=== PATIENT | female | born 2000 | race Caucasian/White ===

== ENCOUNTER 2024-07-20 21:14 | Emergency (ER) | payer BC, SELFPAY ==
[2024-07-20 21:20] VITALS: BP 106/90; PULSE 76; RESP 18; TEMP 36.4; O2SAT 100
[2024-07-20 22:56] LABS: Basophils Percent Auto 0.2 % (0.2-1.2); Eosinophils Percent Auto 0.8 % (0-4.4); Hematocrit 40.6 % (37.0-47.0); Hemoglobin 13.9 g/dL (12.0-15.0); Immature Granulocyte Absolute 0.01 K/mm3 (0.00-0.031); Immature Granulocyte Percent A 0.2 % (0-0.5); Lymphocytes Absolute Auto 1.76 K/mm3 (0.9-3.2); Lymphocytes Percent Auto 36.1 % (18.3-44.2); Mean Corpuscular HGB Conc 34.2 g/dl (32-36); Mean Corpuscular Volume 87.7 fl (80-100); Mean Platelet Volume 9.2 fl (7.4-10.4); Monocytes Absolute Auto 0.3 K/mm3 (0.1-0.6); Monocytes Percent Auto 6.6 % (2.6-8.5); Neutrophils Absolute Auto 2.7 K/mm3 (1.3-6.7); Neutrophils Percent Auto 56.1 % (45.5-73.1); Platelet Count Result 413 k/mm3 (150-375); Red Blood Count 4.63 M/mm3 (4.2-5.4); Red Cell Distribution Width 12.6 % (11.5-14.5); White Blood Count 4.9 K/mm3 (4.5-10.0)
[2024-07-20 23:02] LABS: Add Urine Microscopic? YES; Appearance Urine Cloudy (Clear); Bacteria Urine 1+ /hpf; Bilirubin Urine Negative (Negative); Blood Urine Negative (Negative); Color Urine Yellow (Yellow); Glucose Urine UA Negative (Negative); Ketones Urine Negative (Negative); Leukocyte Esterase Ur 1+ LEU/UL (Negative); Nitrate Urine Negative (Negative); Non Pathogenic Casts 0-2; Protein Urine Negative (Negative); RBC Urine 0-2 /hpf (0-2); Specific Grav Ur 1.005 (1.001-1.035); Squamous Epithelial Cell Urine Many /hpf (Few); Urobilinogen Urine 0.2 mg/dL (<2.0); pH Urine 7.5 (5.0-9.0)
[2024-07-20 23:06] LABS: Alanine Aminotransferase 39 U/L (6-35); Albumin Level 4.3 g/dL (3.5-5.1); Alkaline Phosphatase 102 U/L (38-126); Anion Gap 16 mmol/L (4-12); Aspartate Amino Transferase 49 U/L (14-36); Bilirubin,Total 0.8 mg/dL (0.2-1.3); Blood Urea Nitrogen 5 mg/dL (7-17); Calcium 8.8 mg/dL (8.4-10.2); Carbon Dioxide 23 mmol/L (22-30); Chloride 105 mmol/L (98-107); Estimated CRCL calculation 123 ml/min; Estimated Glomerular Filt Rate > 60; Glucose 110 mg/dL (65-110); Potassium 3.9 mmol/L (3.4-5.0); Sodium 144 mmol/L (137-145)
[2024-07-20 23:07] LABS: Acetaminophen < 10 ug/mL (10-30); Ethanol 270 mg/dL (<10); Salicylate < 1.0 mg/dL (2-20)
[2024-07-20 23:18] LABS: Amphetamine Screen Urine Negative (Negative); Barbiturate Screen Urine Negative (Negative); Benzodiazepines Screen Urine Negative (Negative); Cannabinoid Screen Urine Positive (Negative); Cocaine Screen Urine Negative (Negative); Methadone Screen Urine Negative (Negative); Opiate Screen Urine Negative (Negative); Phencyclidine Screen Urine Negative (Negative)
--- NOTE | 2024-07-21 00:06 | PC.NURSE ---
Per MD Hermosillo, pt is low-risk with no plan and no history of suicide attempt. Pt reports she just drinks when she feels like this . Per MD Hermosillo, okay to d/c sitter at this time. Pt currently resting, even/unlabored respirations. Waiting sobriety. Pt and pt's mother aware of plan.
--- NOTE | 2024-07-21 00:30 | ED_ITS ---
HPI - General Adult General Chief complaint: Psychiatric Symptoms <Tomas Hermosillo MD - Last Filed: 07/21/24 00:33> Stated complaint: SI FROM [facility] <Tomas Hermosillo MD - Last Filed: 07/21/24 00:33> Time Seen by Provider: 07/20/24 21:15 <Tomas Hermosillo MD - Last Filed: 07/21/24 00:33> History of Present Illness HPI narrative: This is a 24-year-old female with history of alcohol abuse presenting for alcohol intoxication and suicidal ideation. She got drunk at a gas station was found sleeping in her car. Please restaurant gave her DUI. While she was at the police station she started crying and said she wanted to kill herself. They then brought her to the hospital for evaluation. Patient is denying SI to me. She says she was upset because she got a DUI. No history of psychiatric illness or suicide attempts or hospitalization for psychiatric illness. She does has a history of alcohol abuse with withdrawal symptoms. <Tomas Hermosillo MD - Last Filed: 07/21/24 00:33> Related Data Allergies/adverse reactions: Allergies Allergy/AdvReac Type Severity Reaction Status Date / Time No Known Allergies Allergy Verified 07/21/24 08:43 <Tomas Hermosillo MD - Last Filed: 07/21/24 00:33> FOR[facility]LY [facility] Family History Family History: Family History (Updated 02/08/14 @ 07:13 by DOCTOR UNKNOWN) Grandparent Family history of obesity Hypertension Family history of cardiac disorder Diabetes mellitus Sibling Family history of eczema <Tomas Hermosillo MD - Last Filed: 07/21/24 00:33> Social History Social History: Social History Second hand tobacco smoke exposure: No Alcohol intake: never <Tomas Hermosillo MD - Last Filed: 07/21/24 00:33> Exam 2 Narrative: APPEARANCE: No apparent distress. Head: atraumatic. EYES: EOMI, NOSE: Atraumatic NECK: Trachea midline RESPIRATORY: No increased rate of breathing CTAB CARDIOVASCULAR: RRR, no peripheral edema ABDOMINAL: Non-distended soft nontender MUSCULOSKELETAl: No obvious deformities NEURO: Alert. Moving 4/4 extremities SKIN:: Warm, dry. Normal color PSYCHIATRIC: Normal affect <Tomas Hermosillo MD - Last Filed: 07/21/24 00:33> Course Reevaluation(s) Reevaluation #1: On re-evaluation patient's blood alcohol was below the legal limit. Patient denies any current suicidal ideation. Patient was offered crisis evaluation and patient declined. Patient states he does have a therapist that she will follow up with. All questions concerns and patient was comfortable plan for discharge and follow-up. Patient was encouraged to return to the emergency department if she did not feel safe. <Boyd Parker MD - Last Filed: 07/21/24 18:34> Vital Signs Vital signs: Vital Signs Temperature 97.6 F 07/20/24 21:20 Pulse Rate 76 07/20/24 21:20 Respiratory Rate 18 07/20/24 21:20 Blood Pressure 106/90 07/20/24 21:20 Pulse Oximetry 100 07/20/24 21:20 Oxygen Delivery Room Air 07/20/24 21:20 Temperature 97.3 F L 07/21/24 08:28 Pulse Rate 77 07/21/24 08:28 Respiratory Rate 20 07/21/24 08:28 Blood Pressure 124/77 07/21/24 08:28 Pulse Oximetry 100 07/21/24 08:28 Oxygen Delivery Room Air 07/20/24 21:20 <Tomas Hermosillo MD - Last Filed: 07/21/24 00:33> Vital Signs Temperature 97.6 F 07/20/24 21:20 Pulse Rate 76 07/20/24 21:20 Respiratory Rate 18 07/20/24 21:20 Blood Pressure 106/90 07/20/24 21:20 Pulse Oximetry 100 07/20/24 21:20 Oxygen Delivery Room Air 07/20/24 21:20 Temperature 97.3 F L 07/21/24 08:28 Pulse Rate 77 07/21/24 08:28 Respiratory Rate 20 07/21/24 08:28 Blood Pressure 124/77 07/21/24 08:28 Pulse Oximetry 100 07/21/24 08:28 Oxygen Delivery Room Air 07/20/24 21:20 <Boyd Parker MD - Last Filed: 07/21/24 18:34> Medical Decision Making MDM Narrative Medical decision making narrative: -Course: 24-year-old female presenting after making suicidal comments to the police after being arrested. She was monitored till sober. She is not suicidal. Patient be discharged <Tomas Hermosillo MD - Last Filed: 07/21/24 00:33> Vital Signs Vital Signs: Vital Signs Temperature 97.6 F 07/20/24 21:20 Pulse Rate 76 07/20/24 21:20 Respiratory Rate 18 07/20/24 21:20 Blood Pressure 106/90 07/20/24 21:20 Pulse Oximetry 100 07/20/24 21:20 Oxygen Delivery Room Air 07/20/24 21:20 Temperature 97.3 F L 07/21/24 08:28 Pulse Rate 77 07/21/24 08:28 Respiratory Rate 20 07/21/24 08:28 Blood Pressure 124/77 07/21/24 08:28 Pulse Oximetry 100 07/21/24 08:28 Oxygen Delivery Room Air 07/20/24 21:20 <Tomas Hermosillo MD - Last Filed: 07/21/24 00:33> Vital Signs Temperature 97.6 F 07/20/24 21:20 Pulse Rate 76 07/20/24 21:20 Respiratory Rate 18 07/20/24 21:20 Blood Pressure 106/90 07/20/24 21:20 Pulse Oximetry 100 07/20/24 21:20 Oxygen Delivery Room Air 07/20/24 21:20 Temperature 97.3 F L 07/21/24 08:28 Pulse Rate 77 07/21/24 08:28 Respiratory Rate 20 07/21/24 08:28 Blood Pressure 124/77 07/21/24 08:28 Pulse Oximetry 100 07/21/24 08:28 Oxygen Delivery Room Air 07/20/24 21:20 <Boyd Parker MD - Last Filed: 07/21/24 18:34> Lab Data Result diagrams: 07/20/24 22:23 07/20/24 22:23 <Tomas Hermosillo MD - Last Filed: 07/21/24 00:33> Labs: Lab Results 07/20/24 07/21/24 07/21/24 Range/Units 22:23 06:53 08:22 WBC 4.9 (4.5-10.0) K/mm3 RBC 4.63 (4.2-5.4) M/mm3 Hgb 13.9 (12.0-15.0) g/dL Hct 40.6 (37.0-47.0) % MCV 87.7 (80-100) fl MCH 30.0 (26-34) pg MCHC 34.2 (32-36) g/dl RDW 12.6 (11.5-14.5) % Plt Count 413 H (150-375) k/mm3 MPV 9.2 (7.4-10.4) fl Immature Gran % (Auto) 0.2 (0-0.5) % Neut % (Auto) 56.1 (45.5-73.1) % Lymph % (Auto) 36.1 (18.3-44.2) % [place] % (Auto) 6.6 (2.6-8.5) % Eos % (Auto) 0.8 (0-4.4) % Baso % (Auto) 0.2 (0.2-1.2) % Lymph # (Auto) 1.76 (0.9-3.2) K/mm3 [place] # (Auto) 0.3 (0.1-0.6) K/mm3 Eos # (Auto) 0.0 (0-0.3) K/mm3 Baso # (Auto) 0.0 (0.0-0.1) K/mm3 Abs Immat Gran (auto) 0.01 (0.00-0.031) K/mm3 Absolute Neuts (auto) 2.7 (1.3-6.7) K/mm3 Absolute Nucleated RBC 0.000 (0.0-0.012) K/mm3 Nucleated RBC % 0.0 (0.0-0.2) % Sodium 144 (137-145) mmol/L Potassium 3.9 (3.4-5.0) mmol/L Chloride 105 (98-107) mmol/L Carbon Dioxide 23 (22-30) mmol/L Anion Gap 16 H (4-12) mmol/L BUN 5 L (7-17) mg/dL Creatinine 0.53 L (0.7-1.0) mg/dL Estim Creat Clear Calc 123 ml/min Estimated GFR > 60 (59 - ) Glucose 110 (65-110) mg/dL Calcium 8.8 (8.4-10.2) mg/dL Total Bilirubin 0.8 (0.2-1.3) mg/dL AST 49 H (14-36) U/L ALT 39 H (6-35) U/L Alkaline Phosphatase 102 (38-126) U/L Total Protein 7.0 (6.3-8.2) g/dL Albumin 4.3 (3.5-5.1) g/dL TSH 2.660 (0.465-4.680) uIU/mL Urine Color Yellow (Yellow) Urine Appearance Cloudy H (Clear) Urine pH 7.5 (5.0-9.0) Ur Specific [place] 1.005 (1.001-1.035) Urine Protein Negative (Negative) mg/dL Urine Glucose (UA) Negative (Negative) mg/dL Urine Ketones Negative (Negative) mg/dL Ur Blood (Man) Negative (Negative) Urine Nitrate Negative (Negative) Urine Bilirubin Negative (Negative) Urine Urobilinogen 0.2 (<2.0) mg/dL Leukocyte Esterase Rfl 1+ H (Negative) JIM/UL Urine RBC 0-2 (0-2) /hpf Urine WBC 11-20 H (0-3) /hpf Ur Squamous Epith Cells Many H (Few) /hpf Urine Bacteria 1+ H /hpf Urine Casts 0-2 Salicylates < 1.0 L (2-20) mg/dL Urine Opiates Screen Negative (Negative) Urine Methadone Screen Negative (Negative) Acetaminophen < 10 L (10-30) ug/mL Ur Barbiturates Screen Negative (Negative) Ur Phencyclidine Scrn Negative (Negative) Ur Amphetamine Screen Negative (Negative) U Benzodiazepines Scrn Negative (Negative) Urine Cocaine Screen Negative (Negative) U Cannabinoids Screen Positive A (Negative) Ethyl Alcohol 270 111 78 (<10) mg/dL <Tomas Hermosillo MD - Last Filed: 07/21/24 00:33> Lab Results 07/20/24 07/21/24 07/21/24 Range/Units 22:23 06:53 08:22 WBC 4.9 (4.5-10.0) K/mm3 RBC 4.63 (4.2-5.4) M/mm3 Hgb 13.9 (12.0-15.0) g/dL Hct 40.6 (37.0-47.0) % MCV 87.7 (80-100) fl MCH 30.0 (26-34) pg MCHC 34.2 (32-36) g/dl RDW 12.6 (11.5-14.5) % Plt Count 413 H (150-375) k/mm3 MPV 9.2 (7.4-10.4) fl Immature Gran % (Auto) 0.2 (0-0.5) % Neut % (Auto) 56.1 (45.5-73.1) % Lymph % (Auto) 36.1 (18.3-44.2) % [place] % (Auto) 6.6 (2.6-8.5) % Eos % (Auto) 0.8 (0-4.4) % Baso % (Auto) 0.2 (0.2-1.2) % Lymph # (Auto) 1.76 (0.9-3.2) K/mm3 [place] # (Auto) 0.3 (0.1-0.6) K/mm3 Eos # (Auto) 0.0 (0-0.3) K/mm3 Baso # (Auto) 0.0 (0.0-0.1) K/mm3 Abs Immat Gran (auto) 0.01 (0.00-0.031) K/mm3 Absolute Neuts (auto) 2.7 (1.3-6.7) K/mm3 Absolute Nucleated RBC 0.000 (0.0-0.012) K/mm3 Nucleated RBC % 0.0 (0.0-0.2) % Sodium 144 (137-145) mmol/L Potassium 3.9 (3.4-5.0) mmol/L Chloride 105 (98-107) mmol/L Carbon Dioxide 23 (22-30) mmol/L Anion Gap 16 H (4-12) mmol/L BUN 5 L (7-17) mg/dL Creatinine 0.53 L (0.7-1.0) mg/dL Estim Creat Clear Calc 123 ml/min Estimated GFR > 60 (59 - ) Glucose 110 (65-110) mg/dL Calcium 8.8 (8.4-10.2) mg/dL Total Bilirubin 0.8 (0.2-1.3) mg/dL AST 49 H (14-36) U/L ALT 39 H (6-35) U/L Alkaline Phosphatase 102 (38-126) U/L Total Protein 7.0 (6.3-8.2) g/dL Albumin 4.3 (3.5-5.1) g/dL TSH 2.660 (0.465-4.680) uIU/mL Urine Color Yellow (Yellow) Urine Appearance Cloudy H (Clear) Urine pH 7.5 (5.0-9.0) Ur Specific [place] 1.005 (1.001-1.035) Urine Protein Negative (Negative) mg/dL Urine Glucose (UA) Negative (Negative) mg/dL Urine Ketones Negative (Negative) mg/dL Ur Blood (Man) Negative (Negative) Urine Nitrate Negative (Negative) Urine Bilirubin Negative (Negative) Urine Urobilinogen 0.2 (<2.0) mg/dL Leukocyte Esterase Rfl 1+ H (Negative) JIM/UL Urine RBC 0-2 (0-2) /hpf Urine WBC 11-20 H (0-3) /hpf Ur Squamous Epith Cells Many H (Few) /hpf Urine Bacteria 1+ H /hpf Urine Casts 0-2 Salicylates < 1.0 L (2-20) mg/dL Urine Opiates Screen Negative (Negative) Urine Methadone Screen Negative (Negative) Acetaminophen < 10 L (10-30) ug/mL Ur Barbiturates Screen Negative (Negative) Ur Phencyclidine Scrn Negative (Negative) Ur Amphetamine Screen Negative (Negative) U Benzodiazepines Scrn Negative (Negative) Urine Cocaine Screen Negative (Negative) U Cannabinoids Screen Positive A (Negative) Ethyl Alcohol 270 111 78 (<10) mg/dL <Boyd Parker MD - Last Filed: 07/21/24 18:34> Discharge Plan Discharge Clinical Impression: Alcohol intoxication <Tomas Hermosillo MD - Last Filed: 07/21/24 00:33> Patient Disposition: Home, Self-Care <Tomas Hermosillo MD - Last Filed: 07/21/24 00:33> Condition: Stable <Tomas Hermosillo MD - Last Filed: 07/21/24 00:33> Instructions: Antibiotic Form, Abuse of Alcohol (DC) <Tomas Hermosillo MD - Last Filed: 07/21/24 00:33> Additional Instructions: Please continue seeking help with your alcohol abuse. Return to the ED if you develop thoughts of harming herself or someone else. You were offered evaluation by the crisis counselor but you preferred to have follow-up with your own therapist. If you have any worsening symptoms or if you do not feel safe then please feel welcome to call or return to the emergency department at any time. <Tomas Hermosillo MD - Last Filed: 07/21/24 00:33> Patient Language: Bangladeshi <Tomas Hermosillo MD - Last Filed: 07/21/24 00:33> Follow-up/Referrals: UNKNOWN,DOCTOR [Primary Care Provider] - <Tomas Hermosillo MD - Last Filed: 07/21/24 00:33>
[2024-07-21 07:11] LABS: Ethanol 111 mg/dL (<10)
[2024-07-21] MEDS: ONDANSETRON HCL ODT 4 MG TABLET PO (08:00)
[2024-07-21 08:28] VITALS: BP 124/77; PULSE 77; RESP 20; TEMP 36.3; O2SAT 100
[2024-07-21 08:42] LABS: Ethanol 78 mg/dL (<10)
== END 2024-07-21 09:40 | disposition home or self-care (01) ==
PROVIDERS: Emergency Provider Emergency Medicine
DX: F10.129 Alcohol abuse with intoxication, unspecified (principal); Y90.8 Blood alcohol level of 240 mg/100 ml or more
CPT/HCPCS: 36415; 80053; 80143; 80179; 80307; 81001; 82077; 84443; 85025; 99284; A9270

== ENCOUNTER 2025-06-13 08:43 | Emergency (ER) | payer BC, SELFPAY ==
--- OUTSIDE RECORDS SUMMARY | 2024-12-05 11:00 | XMS_ITS ---
Author Organization [facility] Address [address] [place] [address] Phone [phone] Care Team Providers Care Outsole Scheduler Name Role Phone Janet Meyers Primary Care Provider REASON FOR VISIT 4 week F/U Social History Sex Observation Social History Observation Description Sex Observation Female Sexual Orientation Social History Observation Description Sexual Orientation Straight or heterose xual Gender Identity Social History Observation Description Gender Identity Female Encounters Date Time Type Facility Location Provider Diagnosis 12/05/2024 11:00 AM Office Visit [facility] [address] [place] [address] Janet Meyers Plan Of Treatment No Information Medical (General) History Medical History History ICD Code Bipolar tendencies Depression Alcohlism Surgical History Surgery Date(Month/Year) Ear tubes 2002 [place] teeth extractions 2019 Hospitalization History Reason Date(Month/Year) [facility] 04/07 [place] [facility] 11/2024 Alcohol withdraw, UTI 11/2024 suicidal ideation/DUI 07/20/2024 Progress Notes * Daniel KIRKLANDOB:2000 ( 25 yo F)Acc No.[id number]:12/05/2024 UNLOCKED PROGRESS NOTE Patient: Mouna HERNANDEZ Provider: Radha Meyers, DNP, SENIOR COST ESTIMATOR, ELECTRONEURODIAGNOSTIC TECHNOLOGIST-C :2000 A ge:24 Y S ex:Female Date:12/05/2024 Address:[address], [id number] Subjective: * Chief Complaints: * 1 . 4 week F/U. * HPI: M edication F/u LS: Denies : Hallucinations:. D enies : Suicidal Ideation:.?Denies : Homicidal Ideation:. D enies : Paranoia:. D enies : AIMS. 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 C oping Skills: C oping Skills S elf-Care, Physical Activity/Sports/Exercise, Spirituality. M edication effectiveness, adherence, side effects: H ave medications been effective??Other (see comments): somewhat less depressed and anxious, M edication adherence? C lient reports taking some medications as prescribed., M edication side effects? D enies side effects. S leep: S leep: S leeps well when taking prescribed medications., A verage hours of sleep per night: 5 -6 decreased nightmares. A ppetite: A ppetite: D enies appetite issues. eating better, drinking water. A ttention/Focus: A ttention/focus: A ble to focus.. M ood swings: M ood swings: A dmits mood swings. feels faith, occasional racing thoughts. D epression rating: D epression rating, 0-10 scale (0=not at all; 10=worst): 4 comes and goes. A nxiety: A nxiety rating, 0-10 scale (0=not at all; 10=worst): 5 comes and goes. A nger/Irritability: A nger/Irritability: A dmits. irritable at times, comes and goes. M edical Concerns/Hospitalizations: M edical Concerns? D enies medical concerns., H ospitalizations: A dmits psychiatric hospitalization since last visit.. E ngagement in therapy: A ctively engaged in therapy? D oes not attend therapy., Notes: will be finding a therapist. Presents in clinic. Discharged from [facility] Wednesday. Reports feeling better. Occasional cravings, not as bad as before admission to [facility]. Has thoughts of using then remembers she has difficulty stopping with one drink. * ROS: P sych ROS: Constitutional A ll systems negative unless indicated otherwise.. C ardiovascular D enies, d izziness, syncope, palpitations.. H ematological/Lymphatic D enies, b leeding, excessive bruising. * PSYCH ROS2: Depressive symptoms R eports depressed mood, , , Denies anhedonia, Denies amotivation, Denies sleep problems. A dmits E levated mood symptoms, r acing thoughts, irritable. A dmits m ood swings, f eels samy. T houghts of self harm D enies. D enies H omicidal thoughts. H yperactivity D enies. I nattention D enies. B ehavior concerns D enies. D isruptive behavior D enies. O bsessive behavior D enies.?Paranoia D enies. D ifficulty concentrating D enies. s leeping more than usual Denies. A dmits A nxiety, t hat is mild to moderate. D enies A uditory/visual hallucinations. D enies D elusions. A dmits D epressed mood, w hich is moderate. D enies D ifficulty sleeping. D enies E ating disorder. D enies L oss of appetite. D enies M ental or Physical abuse. A dmits S tressors, r elationship,health. D enies S ubstance abuse. D enies S uicidal thoughts. * Screening: * * Medical History: Objective: * Vitals: * Examination: P sychiatry: APPEARANCE: w ell-groomed, well-nourished, appropriately dressed/groomed, casually dressed. ATTENTION: f air. ORIENTATION: y es , person, place and time. ATTITUDE: c ooperative ,, . AFFECT: b lunted, . MOOD: d ysthymic, uneasy. SPEECH: c lear , normal/R/V/R, spontaneous, . PSYCHOMOTOR ACTIVITY: w ithin normal range, . ABNORMAL BODY MOVEMENTS: n one. CURRENT HOMICIDALITY: n one. CURRENT SUICIDALITY: n ot presently, Occasional thoughts, no intent or plan--increased when drinking. THOUGHT PROCESS: i ntact, linear, goal-directed. THOUGHT CONTENT: u nremarkable, racing thoughts. PERCEPTUAL DISORDERS: n o perceptual disorder noted--reports AH/VH. INSIGHT: f air. JUDGEMENT: f air. DEGREE OF AWARENESS OF SURROUNDINGS: w ithin normal limits.? INTELLIGENCE (estimate): a verage. ABSTRACTION: g ood. IMPULSE CONTROL: f air to poor. ANXIETY LEVEL m oderate. ANGER CONTROL: m oderate. AGGRESSION: l ow. 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 Discharged from [facility] Wednesday. Reports feeling better. Occasional cravings, not as bad as before admission to [facility]. Has thoughts of using then remembers she has difficulty stopping with one drink. Coping Skills: Coping Ski lls: Self-Care, Physical Activity/Sports/Exercise, Spirituality Medication effectiveness, adherence, side effects: Have medications been effect lalita?: Other (see comments): somewhat less depressed and anxious Medication adherence?: Client reports ta brett some medications as prescribed. Medication side effects?: Denies side ef fects Sleep: Sleep:: Sleeps well when taking prescribed medications. Average hours of sleep per night:: 5-6 d ecreased nightmares Appetite: Appetite:: Den ies appetite issues. eating better, drinking water Attention/Focus: Attentio n/focus:: Able to focus. Mood swings: Mood swings: : Admits mood swings. feels faith, occasional racing thoughts Depression rating: Depres danny rating, 0-10 scale (0=not at all; 10=worst):: 4 comes and goes Anxiety: Anxiety rating , 0-10 scale (0=not at all; 10=worst):: 5 comes and goes Anger/Irritability: Anger /Irritability:: Admits. irritable at times, comes and goes Medical Concerns/Hospitalizations: Medical Concerns?: Denies medical concerns. Hospitalizations:: Admits psychiatric ho spitalization since last visit. Engagement in therapy: [place]ral engaged in therapy?: Does not attend therapy., Notes: will be finding a therapist Examination Category Field Details Notes Category Notes Psychiatry APPEARANCE: well-groomed, we ll-nourished, appropriately dressed/groomed, casually dressed ATTITUDE: cooperative ,, PSYCHOMOTOR ACTIVITY: within normal rang e, ABNORMAL BODY MOVEMENTS: none ATTENTION: fair DEGREE OF AWARENESS OF SURROUNDINGS: wit hin normal limits ORIENTATION: yes , person, place and time AFFECT: blunted, MOOD: dysthymic, uneasy SPEECH: clear , normal/R/V/R , spontaneous, INSIGHT: fair JUDGEMENT: fair THOUGHT PROCESS: intact, linear, goal -directed THOUGHT CONTENT: unremarkable, racing thoughts PERCEPTUAL DISORDERS: no perceptual diso rder noted--reports AH/VH ABSTRACTION: good AGGRESSION: low ANGER CONTROL: moderate CURRENT SUICIDALITY: not presently, Occa sional thoughts, no intent or plan--increased when drinking CURRENT HOMICIDALITY: none INTELLIGENCE (estimate): average IMPULSE CONTROL: fair to poor ANXIETY LEVEL moderate
--- OUTSIDE RECORDS SUMMARY | 2024-12-28 16:00 | XMS_ITS ---
Author Organization [facility] Address [address] [place] [address] Phone [phone] Care Team Providers Care Hotel Assistant General Manager Name Role Phone Janet Meyers Primary Care Provider [phone] REASON FOR VISIT r/s from 12/05 Social History Sex Observation Social History Observation Description Sex Observation Female Sexual Orientation Social History Observation Description Sexual Orientation Straight or heterose xual Gender Identity Social History Observation Description Gender Identity Female Encounters Date Time Type Facility Location Provider Diagnosis 12/28/2024 04:00 PM Office Visit [facility] [address] [place] [address] Janet Meyers Plan Of Treatment No Information Medical (General) History Medical History History ICD Code Bipolar tendencies Depression Alcohlism Surgical History Surgery Date(Month/Year) Ear tubes 2002 [place] teeth extractions 2019 Hospitalization History Reason Date(Month/Year) [facility] 04/07 [place] [facility] 11/2024 Alcohol withdraw, UTI 11/2024 suicidal ideation/DUI 07/20/2024 Progress Notes * IGNACIO DanielOB:2000 ( 25 yo F)Acc No.[id number]:12/28/2024 UNLOCKED PROGRESS NOTE Patient: Mouna HERNANDEZ Provider: Radha Meyers, DNP, [employer] SOLUTION ARCHITECT, JEWELLERY DESIGNER-C :2000 A ge:24 Y S ex:Female Date:12/28/2024 Address:[address], [id number] Subjective: * Chief Complaints: * 1 . R/s from 12/05. * HPI: M edication F/u LS: Denies [...] Treatment: * * Electronic signature of Michael Meyers , [id number] on 06/13/2025 at 08:46 AM DIRECT MAIL CLERK Sign off status: Pending * Provider: Radha Meyers, [place], SFDC SOLUTION ARCHITECT, JEWELLERY DESIGNER-C Date: 0 12/28/2024 Generated for Printing/Faxing/eTransmitting on: 1 08:46 AM DIRECT MAIL CLERK History and Physical Notes * HPI (History [...] faith, occasional racing thoughts Depression rating: Depres adnny rating, 0-10 scale (0=not at all; 10=worst):: 4 comes and goes Anxiety: Anxiety rating , 0-10 scale (0=not at all; 10=worst):: 5 comes and goes Anger/Irritability: Anger /Irritability:: Admits. irritable at times, comes and goes Medical Concerns/Hospitalizations: Medical Concerns?: Denies medical concerns. Hospitalizations:: Admits psychiatric ho spitalization since last visit. Engagement in therapy: Ac margueritevely engaged in therapy?: Does not attend therapy., [...]
--- OUTSIDE RECORDS SUMMARY | 2025-01-17 10:20 | XMS_ITS ---
Author Organization [facility] Address [address] [place] [address] Phone [phone] Care Team Providers Care Guardian Ad Litem Name Role Phone Sparr Janet Primary Care Provider Fransico jOeda Unavailable [phone] Results Component Value Reference Range Notes HIV Screen *HIV 1, 2 Ab, p24 Ag ([id number]) Order date: 01/17/2025 Reviewed date:02/01/2025 01:12:15 PM Interpretation: Performing Lab: Notes/Report: Iron and TIBC* Order date: 01/17/2025 Reviewed date:02/01/2025 01:12:48 PM Interpretation: Performing Lab: Notes/Report: Lipase, Serum Order date: 01/17/2025 Reviewed date:02/01/2025 01:13:46 PM Interpretation: Performing Lab: Notes/Report: CBC With Differential/Platel et* Order date: 01/17/2025 Reviewed date:02/01/2025 01:12:55 PM Interpretation: Performing Lab: Notes/Report: Hepatitis B Surface Antigen (HBsAg Screen) Order date: 01/17/2025 Reviewed date:02/01/2025 01:12:07 PM Interpretation: Performing Lab: Notes/Report: Hepatitis B Surf Ab Quant* Order date: 01/17/2025 Reviewed date:02/01/2025 01:11:43 PM Interpretation: Performing Lab: Notes/Report: C-Reactive Protein, Quant Order date: 01/17/2025 Reviewed date:02/01/2025 01:12:42 PM Interpretation: Performing Lab: Notes/Report: Hepatitis C Virus Antibody w /Rflx to Quantitative Real-time PCR ([id number]) Order date: 01/17/2025 Reviewed date:02/01/2025 01:11:55 PM Interpretation: Performing Lab: Notes/Report: TSH Rfx on Abnormal to Free T4 Order date: 01/17/2025 Reviewed date:02/01/2025 01:12:26 PM Interpretation: Performing Lab: Notes/Report: UA/M w/rflx Culture, Routine Order date: 01/17/2025 Reviewed date:02/01/2025 01:11:15 PM Interpretation: Performing Lab: Notes/Report: REASON FOR VISIT lab Medications Medication SIG (Take, Route, Frequency, Duration) Notes Start Date End Date Diagnosis (ICD Code) Status cloNIDine HCl 0.1 MG Tablet 1 tablet Orally two times daily; Duration: 30 days As needed 08/14/2024 KATHERIN (generalized anxiety disorder) (ICD_10 - F41.1) Not-Taking QUEtiapine Fumarate 100 MG Tablet 1 tablet Orally twice a day; Duration: 30 days KATHERIN (generalized anxiety disorder) (ICD_10 - F41.1) Active traZODone HCl 100 MG Tablet 1 tablet at bedtime Orally Once a day Active cloNIDine HCl ER 0.1 MG Tablet Extended Release 12 Hour 1 tablet at bedtime Orally Once a day; Duration: 30 days KATHERIN (generalized anxiety disorder) (ICD_10 - F41.1) Active Naltrexone HCl 50 MG Tablet 1 tablet Orally Once a day; Duration: 30 days Alcohol use disorder (ICD_10 - F10.99) Active Thiamine Mononitrate 100 MG Tablet 1 tablet Orally Once a day; Duration: 3 days 10/09/2024 KATHERIN (generalized anxiety disorder) (ICD_10 - F41.1) Active Folic Acid 1 MG Tablet 1 tablet Orally Once a day; Duration: 30 day(s) 10/09/2024 KATHERIN (generalized anxiety disorder) (ICD_10 - F41.1) Active Multi Vitamin - Tablet 1 tablet Orally Once a day; Duration: 30 days 10/09/2024 KATHERIN (generalized anxiety disorder) (ICD_10 - F41.1) Active hydrOXYzine HCl 50 MG Tablet 1 tablet Orally every 6 hours; Duration: 30 days As needed KATHERIN (generalized anxiety disorder) (ICD_10 - F41.1) Active Escitalopram Oxalate 20 MG Tablet 1 tablet Orally Once a day; Duration: 30 days MDD (major depressive disorder), single episode, moderate (ICD_10 - F32.1) Active Social History Sex Observation Social History Observation Description Sex Observation Female Sexual Orientation Social History Observation Description Sexual Orientation Straight or heterose xual Gender Identity Social History Observation Description Gender Identity Female Encounters Date Time Type Facility Location Provider Diagnosis 10:20 AM Office Visit [address] [address] Fransico Ojeda Iron deficiency anemia D50.9 ; Abdominal pain R10.9 ; Fatty liver K76.0 ; Diarrhea R19.7 ; Fatigue R53.83 and Exposure to potential infection Z20.9 Assessments Encounter Date Diagnosis (ICD Code) Assessment Notes Treat ment Notes Section Notes 01/17/2025 Iron deficiency anem ia (ICD-10 - D50.9) 01/17/2025 Abdominal pain (ICD- 10 - R10.9) 01/17/2025 Fatty liver (ICD-10 - K76.0) 01/17/2025 Diarrhea (ICD-10 - R19.7) 01/17/2025 Fatigue (ICD-10 - R53.83) 01/17/2025 Exposure to potentia l infection (ICD-10 - Z20.9) Plan Of Treatment No Information Medical (General) History Medical History History ICD Code Bipolar tendencies Depression Alcohlism Surgical History Surgery Date(Month/Year) Ear tubes 2002 [place] teeth extractions 2019 Hospitalization History Reason Date(Month/Year) [facility] 04/07 [facility] 11/2024 Alcohol withdraw, UTI 11/2024 suicidal ideation/DUI 07/20/2024 Progress Notes * Daniel KIRKLANDOB:2000 ( 25 yo F)Acc No.[id number]:01/17/2025 UNLOCKED PROGRESS NOTE Patient: Mouna HERNANDEZ Provider: Riley Ojeda :2000 A ge:24 Y S ex:Female Date:01/17/2025 Address:[place], [id number] Pcp:Janet Meyers Subjective: * Chief Complaints: * 1 . Lab. * Screening: * * Medical History: * Medications: T aking traZODone HCl 100 MG Tablet 1 tablet at bedtime Orally Once a day , Taking Multi Vitamin - Tablet 1 tablet Orally Once a day , Taking Folic Acid 1 MG Tablet 1 tablet Orally Once a day , Taking Thiamine Mononitrate 100 MG Tablet 1 tablet Orally Once a day , Taking Escitalopram Oxalate 20 MG Tablet 1 tablet Orally Once a day , Taking hydrOXYzine HCl 50 MG Tablet 1 tablet Orally every 6 hours As needed, Taking Naltrexone HCl 50 MG Tablet 1 tablet Orally Once a day , Taking cloNIDine HCl ER 0.1 MG Tablet Extended Release 12 Hour 1 tablet at bedtime Orally Once a day , Taking QUEtiapine Fumarate 100 MG Tablet 1 tablet Orally twice a day , Not-Taking cloNIDine HCl 0.1 MG Tablet 1 tablet Orally two times daily As needed Objective: * Vitals: Assessment: * Assessment: 1. I karen deficiency anemia - D50.9 2 . A bdominal pain - R10.9 ?3. F atty liver - K76.0 4 . D iarrhea - R19.7 5 . F atigue - R53.83 6 . E xposure to potential infection - Z20.9 Plan: * Treatment: 2. A bdominal pain L AB: Lipase, Serum (Collection Date & Time - 01/17/2025) L AB: CBC With Differential/Platelet* (Collection Date & Time - 01/17/2025) L AB: UA/M w/rflx Culture, Routine (Collection Date & Time - 01/17/2025) 3. F atty liver L AB: Hepatitis B Surface Antigen (HBsAg Screen) (Collection Date & Time - 01/17/2025) L AB: Hepatitis B Surf Ab Quant* (Collection Date & Time - 01/17/2025) L AB: Hepatitis C Virus Antibody w/Rflx to Quantitative Real-time PCR ([id number]) (Collection Date & Time - 01/17/2025) 4. D iarrhea L AB: C-Reactive Protein, Quant (Collection Date & Time - 01/17/2025) 5. F atigue L AB: TSH Rfx on Abnormal to Free T4 (Collection Date & Time - 01/17/2025) 6. E xposure to potential infection L AB: HIV Screen *HIV 1, 2 Ab, p24 Ag ([id number]) (Collection Date & Time - 01/17/2025) * * Electronic signature of Homer Ojeda , [id number] on 06/13/2025 at 08:47 AM WHARF TALLY CLERK Sign off status: Pending * Provider: Riley Ojeda Date: 0 01/17/2025 Generated for Sarina dove/Venita/Lamar on: 1 08:47 AM WHARF TALLY CLERK
[2025-06-13 08:47] VITALS: BP 139/97; PULSE 92; RESP 16; TEMP 36.6; O2SAT 98
--- OUTSIDE RECORDS SUMMARY | 2025-06-13 08:47 | XMS_ITS | Clinical Summary ---
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 Role Phone SparrJanet NP Primary Care Provider [phone] Wes Segura MD Unavailable Allergies No known active allergies Medications hydrOXYzine (ATARAX) 50 mg tablet Take 1 tablet (50 mg total) by mouth every 4 (four) hours as needed for itching Active cloNIDine (CATAPRES) 0.1 mg tablet Take 1 tablet (0.1 mg total) by mouth 2 (two) times a day Active cholestyramine (QUESTRAN) 4 gram packet Take 1 packet by mouth 2 (two) times a day 60 packet 12/08/2024 Active loperamide (IMODIUM) 2 mg capsule Take 1 capsule (2 mg total) by mouth 3 (three) times a day 90 capsule 12/08/2024 Active traZODone (DESYREL) 50 mg tablet Take 1 tablet (50 mg total) by mouth nightly Active escitalopram (LEXAPRO) 20 mg tablet Take 1 tablet (20 mg total) by mouth daily 30 tablet 11 03/23/2025 Active gabapentin (NEURONTIN) 600 mg tablet Take 1 tablet (600 mg total) by mouth 3 (three) times a day 90 tablet 2 03/23/2025 Active QUEtiapine (SEROquel) 100 mg tablet Take 1 tablet (100 mg total) by mouth nightly 30 tablet 11 03/23/2025 Active lamoTRIgine (LaMICtal) 25 mg tablet Take 1 tablet (25 mg total) by mouth daily 30 tablet 11 03/24/[address] (PROTONIX) 40 mg EC tablet Take 1 tablet (40 mg total) by mouth daily 30 tablet 03/23/2025 Active Active Problems Problem Noted Date Diagnosed Date Nausea & vomiting 03/20/2025 Acute hypokalemia 03/19/2025 Diarrhea of presumed infectious origin Alcohol use 12/06/2024 Hepatic steatosis 12/06/2024 Colitis 12/03/2024 Vitreous hemorrhage 04/16/2015 Encounters Date Type Department Care Team Description 04/25/2025 [facility] Outreach [facility] [address] [place], [place] [phone] Chrissie Hdz 03/21/2025 Documentation [facility] [address] [place], [place] [phone] Chrissie Hdz 03/20/2025 Documentation [facility] [address] [place], [place] [phone] Paras Brown RRT 03/20/2025 Documentation [facility] [address] [place], [place] [phone] Jelly Baugh 03/19/2025 4:31 AM CDT - 03/23/2025 2:35 PM CDT Hospital Encounter [facility] [address] [place] [address] Maury Black MD Moore, Duane Harold, MD Sinha, Chandni, MD Sargsyan, Narine, MD Acute hypokalemia (Primary Dx); Leukocytosis, unspecified type; Toxic effect of 2-Propanol, unintentional, initial encounter Discharge Disposition: Discharge to home or self care 03/19/2025 [facility] Enrollment [facility] [address] [place], [place] [phone] Jelly Baugh from Last 3 Months Medical History Medical History Date Comments Bipolar 1 disorder (HCC) Anxiety Depression Suicidal ideation Social History Tobacco Use Types Packs/Day Years Used Date Smoking Tobacco: Every Day Cigarettes 0.3 0.2 Started: 03/18/2025 Smokeless Tobacco: Never Tobacco Cessation:Ready to Q uit: Not Asked; Counseling Given: Not Answered Alcohol Use Standard Drinks/Week Comments Yes 40 (1 standard drink = 0.6 oz pu re alcohol) Social Connection and Isolation Panel Answer Date Recorded In a typical week, how many times do you talk on the phone with family, friends, or neighbors? Three times a week 03/20/2025 How often do you get togethe r with friends or relatives? Three times a week 03/20/2025 How often do you attend chur or druze services? Never 03/20/2025 Do you belong to any clubs o r organizations such as baptism groups, unions, fraternal or athletic groups, or school groups? No 03/20/2025 How often do you attend meet ings of the clubs or organizations you belong to? Never 03/20/2025 Are you , , di vorced, , never , or living with a partner? 03/20/2025 AUDIT-C Answer Date Recorded Q1: How often do you have a drink containing alcohol? 4 or more times a week 03/19/2025 Q2: How many drinks containi ng alcohol do you have on a typical day when you are drinking? 10 or more Q3: How often do you have si x or more drinks on one occasion? Daily or almost daily 03/19/2025 Overall Financial Resource Strain (CARDIA) Answe r Date Recorded How hard is it for you to pa y for the very basics like food, housing, medical care, and heating? Very hard 03/20/2025 Hunger Vital Sign Answer Date Recorded Within the past 12 months, y ou worried that your food would run out before you got the money to buy more. Often true 03/20/20 25 Within the past 12 months, t he food you bought just didn't last and you didn't have money to get more. Often true 03/20/2025 PRAPARE - Transportation Answer Date Re corded In the past 12 months, has l ack of transportation kept you from medical appointments or from getting medications? No 12/2024 In the past 12 months, has l ack of transportation kept you from meetings, work, or from getting things needed for daily living? No 03/20/2025 Housing Stability Vital Sign Answer Sahde e Recorded In the last 12 months, was t here a time when you were not able to pay the mortgage or rent on time? Yes 03/20/2025 In the past 12 months, how m any times have you moved where you were living? 2 03/20/2025 At any time in the past 12 m [facility], were you homeless or living in a jail (including now)? Yes 03/20/2025 [facility] Utilities Answer Date Recorded In the past 12 months has th e [employer], gas, oil, or water company threatened to shut off services in your home? Yes 03/20/2025 Personal Safety Answer Date Recorded Have you ever been in or are you currently in a harmful physical or emotional relationship or is someone making you feel afraid or unsafe? 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 Gender Identity Not on file Sexual Orientation Not on file Last Filed Vital Signs Vital Sign Reading Time Taken Comments Blood Pressure 139/75 03/23/2025 10:43 AM CDT Pulse 76 03/23/2025 10:43 AM CDT Temperature 36.6 C (97.9 F) 03/23/2025 10:43 AM CDT Respiratory Rate 18 03/23/2025 10:4 3 AM CDT Oxygen Saturation 100% 03/23/2025 10: 43 AM CDT Inhaled Oxygen Concentration - - Weight 71.5 kg (157 lb 10.1 oz) 025 10:37 AM CDT Height 167.6 cm (5' 6) 03/19/2025 10:3 7 AM CDT Body Mass Index 25.44 03/19/2025 10:37 AM CDT Plan of Treatment Health Maintenance Due Date Last Done Comments Cervical Cancer Screening 2000 Depression Screening 2000 Hepatitis C Screening 2000 Varicella Vaccines (2 of 2 - 2-dose childhood series) 2004 06/16/2001 Pneumococcal vaccine <65 (1 of 1 - PPSV23, PCV20, or PCV21) 2006 09/12/2001, 2000, 2000 DTaP/Tdap/Td Vaccine (4 - Tdap) 2011 09/12/2001, 2000, 2000 HPV Vaccines (1 - 3-dose series) 2015 Regular Well Visit/Exam 18-64 2018 Influenza Vaccine (#1) 2025 Procedures Procedure Name Priority Date/Time Associated Diagnosis Comments EGFR Routine 03/21/2025 4:46 AM CDT DIFFERENTIAL AUTO Routine 03/21/2025 4:4 6 AM CDT BASIC METABOLIC PANEL Routine 03/21/2025 4:46 AM CDT CBC WITH AUTO DIFFERENTIAL Routine 03/21/2025 4:46 AM CDT PHOSPHORUS Add-On 03/20/2025 5:07 AM CDT EGFR Routine 03/20/2025 5:07 AM CDT DIFFERENTIAL AUTO Routine 03/20/2025 5:0 7 AM CDT HEPATIC FUNCTION PANEL Routine 5:07 AM CDT BASIC METABOLIC PANEL Routine 03/20/2025 5:07 AM CDT CBC WITH AUTO DIFFERENTIAL Routine 03/20/2025 5:07 AM CDT EGFR Timed 03/19/2025 5:23 PM CDT SEPSIS LACTATE WITH REFLEX Timed 03/19/2025 5:23 PM CDT PHOSPHORUS Timed 03/19/2025 5:23 PM CDT MAGNESIUM Timed 03/19/2025 5:23 PM CDT COMPREHENSIVE METABOLIC PANEL Timed 03/19/2025 5:23 PM CDT DRUGS OF ABUSE SCREEN, URINE WITHOUT CONFIRMATION STAT 03/19/2025 4:10 PM CDT URINALYSIS AND REFLEX TO MICROSCOPIC AND CULTURE STAT 03/19/2025 4:10 PM CDT BLOOD CULTURE Routine 03/19/2025 2:56 PM CDT BLOOD CULTURE Routine 03/19/2025 2:46 PM CDT ECG 12-LEAD Routine 03/19/2025 12:[address] ABDOMEN PELVIS W CONTRAST ED 03/19/2025 8:31 AM CDT EGFR STAT 03/19/2025 8:03 AM CDT BASIC METABOLIC PANEL STAT 03/19/2025 8:03 AM CDT OSMOLALITY, BLOOD STAT 03/19/2025 6:4 8 AM CDT HCG, BLOOD, QUANTITATIVE STAT 03/19/2025 6:48 AM CDT ACETAMINOPHEN LEVEL STAT 03/19/2025 6 :48 AM CDT SALICYLATE LEVEL STAT 03/19/2025 6:48 AM CDT BLOOD GAS, VENOUS STAT 03/19/2025 6:4 8 AM CDT ECG 12-LEAD STAT 03/19/2025 6:43 AM CDT MT CRITICAL CARE ILL/INJURED PATIENT INIT 30-74 MIN Routine 03/19/2025 6:29 AM CDT MANUAL DIFFERENTIAL STAT 03/19/2025 4 :18 AM CDT EGFR STAT 03/19/2025 4:18 AM CDT ETHANOL STAT 03/19/2025 4:18 AM CDT LIPASE STAT 03/19/2025 4:18 AM CDT COMPREHENSIVE METABOLIC PANEL STAT 03/19/2025 4:18 AM CDT CBC WITH AUTO DIFFERENTIAL STAT 03/19/2025 4:18 AM CDT from Last 3 Months Results * eGFR (03/21/2025 4:46 AM CDT) Pathologist [facility] eGFR >90 >=60 mL/min/1. 73 m2 Comment: Interpretive Data Reference Interval Normal >/= 90 mL/min/1.73m2 Mildly decreased* 60 - 89 mL/min/1.73m2 Mildly to moderately decreased 45 - 59 mL/min/1.73m2 Moderately to severely decreased 30 - 44 mL/min/1.73m2 Severely decreased 15 - 29 mL/min/1.73m2 Kidney Failure < 15 mL/min/1.73m2 *Relative to young adult level Estimated glomerular filtration rate is determined by the 2020 CKD-EPI equation recommended by the National Kidney Foundation (A Unifying Approach to GFR Estimation: Recommendations of the NKF-ASK Task Force on Reassessing the Inclusion of Race in Diagnosing Kidney Disease, JASN 2020). The CKD-EPI equation should not be used for patients with unstable renal function and has not been validated in children and those over 70. Current interpretive data was last reviewed 2021. Blood 03/21/2025 4:46 AM CDT 03/21/2025 5:05 AM CDT us Brooke Rashid NP LAB BLOOD ORDERABLES Final Result [facility] ([place]) 1 [facility] [place] [address] * Differential, auto (03/21/2025 4:46 AM CDT) Pathologist [facility] Neutrophil abs 3.17 1.50 - 6.50 K/cumm Imm gran abs 0.02 0.00 - 0.10 K/cumm [facility] ([place]) Lymphocyte abs 2.23 0.80 - 3.30 K/cumm [facility] ([place]) Monocyte abs 0.33 0.20 - 0.80 K/cumm [facility] ([place]) Eosinophil abs 0.09 0.00 - 0.50 K/cumm [facility] ([place]) Basophil abs 0.02 0.00 - 0.10 K/cumm [facility] ([place]) Neutrophil pct 54.2 % [facility] ([place]) Comment: Interpretive Data Percent cell count reference ranges are not reported, since discordance with absolute values may lead to misinterpretation of CBC data. Current Interpretive Data was last revised on 2017. Imm gran pct 0.3 % [facility] ([place]) Comment: Interpretive Data Percent cell count reference ranges are not reported, since discordance with absolute values may lead to misinterpretation of CBC data. Current Interpretive Data was last revised on 2017. Lymphocyte pct 38.1 % [facility] ([place]) Comment: Interpretive Data Percent cell count reference ranges are not reported, since discordance with absolute values may lead to misinterpretation of CBC data. Current Interpretive Data was last revised on 2017. Monocyte pct 5.6 % [facility] ([place]) Comment: Interpretive Data Percent cell count reference ranges are not reported, since discordance with absolute values may lead to misinterpretation of CBC data. Current Interpretive Data was last revised on 2017. Eosinophil pct 1.5 % [facility] ([place]) Comment: Interpretive Data Percent cell count reference ranges are not reported, since discordance with absolute values may lead to misinterpretation of CBC data. Current Interpretive Data was last revised on 2017. Basophil pct 0.3 % [facility] ([place]) Comment: Interpretive Data Percent cell count reference ranges are not reported, since discordance with absolute values may lead to misinterpretation of CBC data. Current Interpretive Data was last revised on 2017. Blood 03/21/2025 4:46 AM CDT 03/21/2025 5:05 AM CDT us Brooke Rashid NP LAB BLOOD ORDERABLES Final Result [facility] ([place]) 1 [facility] [place] [address] * (ABNORMAL) CBC with auto differential (03/21/2025 4:46 AM CDT) WBC 5.86 3.80 - 9.90 K/cumm Hgb 11.3(L) 11.9 - 15.5 g/dL [facility] ([place]) Hct 33.8(L) 35.6 - 45.5 % [facility] ([place]) Plt 260 150 - 400 K/cumm [facility] ([place]) MPV 9.2 9.1 - 12.3 fL [facility] ([place]) RBC 4.12 3.90 - 5.20 M/cumm [facility] ([place]) MCV 82.0 81.3 - 96.4 fL [facility] ([place]) MCH 27.4 27.1 - 33.3 pg [facility] ([place]) MCHC 33.4 32.3 - 35.7 g/dL [facility] ([place]) RDW CV 13.1 11.1 - 14.9 % [facility] ([place]) RDW SD 38.9 35.7 - 48.1 fL [facility] ([place]) NRBC abs 0.00 0.00 - 0.01 K/cumm [facility] ([place]) Blood 03/21/2025 4:46 AM CDT 03/21/2025 5:05 AM CDT Brooke Rashid NP LAB BLOOD ORDERABLES Final Result [facility] ([place]) 1 [facility] [place] [address] * (ABNORMAL) Basic metabolic panel (03/21/2025 4:46 AM CDT) Pathologist [facility] Sodium 138 135 - 145 mmol/L [facility] ([place]) Potassium, pl 3.9 3.3 - 4.9 mmol/L [facility] ([place]) Chloride 105 97 - 110 mmol/L [facility] ([place]) CO2 23 22 - 32 mmol/L [facility] ([place]) Anion gap 10 2 - 15 mmol/L [facility] ([place]) BUN 4(L) 6 - 25 mg/dL [facility] ([place]) Creatinine 0.57(L) 0.60 - 1.10 mg/dL [facility] ([place]) Glucose 94 70 - 199 mg/dL [facility] Comment: Interpretive Data Fasting glucose >/= 126 mg/dl is diagnostic for diabetes. Fasting is defined as no caloric intake for at least 8 hours. Fasting glucose between 100 mg/dl to 125 mg/dl is diagnostic of prediabetes. In a patient with classic symptoms of hyperglycemia or hyperglycemic crisis, a random glucose >/= 200 mg/dl is diagnostic for diabetes. In the absence of unequivocal hyperglycemia, results should be confirmed by repeat testing. The classification and Diagnosis of Diabetes Diabetes Care 2021; 46: S19-S40. Current interpretive data was last revised 2022. Calcium 8.8 8.5 - 10.3 mg/dL [facility] ([place]) Blood 03/21/2025 4:46 AM CDT 03/21/2025 5:05 AM CDT Brooke Rashid NP LAB BLOOD ORDERABLES Final Result [facility] ([place]) 1 [facility] Department [place] [address] * eGFR (03/20/2025 5:07 AM CDT) eGFR >90 >=60 mL/min/1. 73 m2 Comment: Interpretive Data Reference Interval Normal >/= 90 mL/min/1.73m2 Mildly decreased* 60 - 89 mL/min/1.73m2 Mildly to moderately decreased 45 - 59 mL/min/1.73m2 Moderately to severely decreased 30 - 44 mL/min/1.73m2 Severely decreased 15 - 29 mL/min/1.73m2 Kidney Failure < 15 mL/min/1.73m2 *Relative to young adult level Estimated glomerular filtration rate is determined by the 2020 CKD-EPI equation recommended by the National Kidney Foundation (A Unifying Approach to GFR Estimation: Recommendations of the NKF-ASK Task Force on Reassessing the Inclusion of Race in Diagnosing Kidney Disease, JASN 2020). The CKD-EPI equation should not be used for patients with unstable renal function and has not been validated in children and those over 70. Current interpretive data was last reviewed 2021. Blood 03/20/2025 5:07 AM CDT 03/20/2025 5:18 AM CDT us Brooke Rashid NP LAB BLOOD ORDERABLES Final Result [facility] ([place]) 1 [facility] [place] [address] * (ABNORMAL) Differential, auto (03/20/2025 5:07 AM CDT) Neutrophil abs 7.51(H) 1.50 - 6.50 K/cumm Imm gran abs 0.04 0.00 - 0.10 K/cumm [facility] ([place]) Lymphocyte abs 2.75 0.80 - 3.30 K/cumm [facility] ([place]) Monocyte abs 0.57 0.20 - 0.80 K/cumm [facility] ([place]) Eosinophil abs 0.02 0.00 - 0.50 K/cumm [facility] ([place]) Basophil abs 0.02 0.00 - 0.10 K/cumm [facility] ([place]) Neutrophil pct 68.8 % [facility] ([place]) Comment: Interpretive Data Percent cell count reference ranges are not reported, since discordance with absolute values may lead to misinterpretation of CBC data. Current Interpretive Data was last revised on 2017. Imm gran pct 0.4 % [facility] ([place]) Comment: Interpretive Data Percent cell count reference ranges are not reported, since discordance with absolute values may lead to misinterpretation of CBC data. Current Interpretive Data was last revised on 2017. Lymphocyte pct 25.2 % [facility] ([place]) Comment: Interpretive Data Percent cell count reference ranges are not reported, since discordance with absolute values may lead to misinterpretation of CBC data. Current Interpretive Data was last revised on 2017. Monocyte pct 5.2 % [facility] ([place]) Comment: Interpretive Data Percent cell count reference ranges are not reported, since discordance with absolute values may lead to misinterpretation of CBC data. Current Interpretive Data was last revised on 2017. Eosinophil pct 0.2 % [facility] ([place]) Comment: Interpretive Data Percent cell count reference ranges are not reported, since discordance with absolute values may lead to misinterpretation of CBC data. Current Interpretive Data was last revised on 2017. Basophil pct 0.2 % [facility] ([place]) Comment: Interpretive Data Percent cell count reference ranges are not reported, since discordance with absolute values may lead to misinterpretation of CBC data. Current Interpretive Data was last revised on 2017. Blood 03/20/2025 5:07 AM CDT 03/20/2025 5:18 AM CDT Brooke Rashid NP LAB BLOOD ORDERABLES Final Result [facility] ([place]) 1 [facility] Department [place] [address] * (ABNORMAL) CBC with auto differential (03/20/2025 5:07 AM CDT) WBC 10.91(H) 3.80 - 9.90 K/cumm Hgb 11.4(L) 11.9 - 15.5 g/dL [facility] ([place]) Hct 34.0(L) 35.6 - 45.5 % [facility] ([place]) Plt 267 150 - 400 K/cumm [facility] ([place]) MPV 9.0(L) 9.1 - 12.3 fL [facility] ([place]) RBC 4.20 3.90 - 5.20 M/cumm [facility] ([place]) MCV 81.0(L) 81.3 - 96.4 fL [facility] ([place]) MCH 27.1 27.1 - 33.3 pg [facility] ([place]) MCHC 33.5 32.3 - 35.7 g/dL [facility] ([place]) RDW CV 13.3 11.1 - 14.9 % [facility] ([place]) RDW SD 38.7 35.7 - 48.1 fL [facility] ([place]) NRBC abs 0.00 0.00 - 0.01 K/cumm [facility] ([place]) Blood 03/20/2025 5:07 AM CDT 03/20/2025 5:18 AM CDT Brooke Rashid DIRECTOR CUSTOM LAB BLOOD ORDERABLES Final Result [facility] 1 [facility] [place] [address] * (ABNORMAL) Phosphorus (03/20/2025 5:07 AM CDT) Phosphorus, pl 2.2(L) 2.3 - 4.5 mg/dL [facility] ([place] Blood 03/20/2025 5:07 AM CDT 03/20/2025 8:57 AM CDT Brooke Rashid DIRECTOR CUSTOM LAB BLOOD ORDERABLES Final Result [facility] ([place]) 1 [facility] [place] [address] * Hepatic function panel (03/20/2025 5:07 AM CDT) Bilirubin, total 0.4 0.1 - 1.2 mg/dL [facility] ([place] Bilirubin, direct 0.2 0.1 - 0.3 mg/dL [facility] ([place] Protein, pl 6.6 6.5 - 8.5 g/dL [facility] ([place]) Albumin 4.2 3.5 - 5.0 g/dL [facility] ([place]) Alk phos 62 40 - 130 Units/L [facility] ([place]) ALT 13 7 - 45 Units/L [facility] ([place]) AST 27 10 - 45 Units/L [facility] ([place]) Blood 03/20/2025 5:07 AM CDT 03/20/2025 5:18 AM CDT Brooke Rashid NP LAB BLOOD ORDERABLES Final Result Performing Organization Address City/State/[facility] Co de Phone Number [facility] ([place]) 1 [facility] [place] [address] * (ABNORMAL) Basic metabolic panel (03/20/2025 5:07 AM CDT) Sodium 139 135 - 145 mmol/L [facility] ([place]) Potassium, pl 4.1 3.3 - 4.9 mmol/L [facility] ([place]) Chloride 108 97 - 110 mmol/L [facility] ([place]) CO2 23 22 - 32 mmol/L [facility] ([place]) Anion gap 8 2 - 15 mmol/L [facility] ([place]) BUN 4(L) 6 - 25 mg/dL [facility] ([place]) Creatinine 0.56(L) 0.60 - 1.10 mg/dL [facility] ([place]) Glucose 95 70 - 199 mg/dL [facility] ([place]) Comment: Interpretive Data Fasting glucose >/= 126 mg/dl is diagnostic for diabetes. Fasting is defined as no caloric intake for at least 8 hours. Fasting glucose between 100 mg/dl to 125 mg/dl is diagnostic of prediabetes. In a patient with classic symptoms of hyperglycemia or hyperglycemic crisis, a random glucose >/= 200 mg/dl is diagnostic for diabetes. In the absence of unequivocal hyperglycemia, results should be confirmed by repeat testing. The classification and Diagnosis of Diabetes Diabetes Care 2021; 46: S19-S40. Current interpretive data was last revised 2022. Calcium 8.5 8.5 - 10.3 mg/dL [facility] ([place]) Blood 03/20/2025 5:07 AM CDT 03/20/2025 5:18 AM CDT Brooke Rashid NP LAB BLOOD ORDERABLES Final Result [facility] ([place]) 1 [facility] [place] [address] * Sepsis Lactate w/ Reflex (03/19/2025 5:23 PM CDT) Sepsis Lactate 1.1 0.7 - 2.0 mmol/L Blood 03/19/2025 5:23 PM CDT 03/19/2025 6:05 PM CDT Brooke Rashid DIRECTOR CUSTOM LAB BLOOD ORDERABLES Final Result Performing Organization Address [facility] Co de Phone Number [facility] ([place]) [address] [place] [address] * eGFR (03/19/2025 5:23 PM CDT) eGFR >90 >=60 mL/min/1. 73 m2 Comment: Interpretive Data Reference Interval Normal >/= 90 mL/min/1.73m2 Mildly decreased* 60 - 89 mL/min/1.73m2 Mildly to moderately decreased 45 - 59 mL/min/1.73m2 Moderately to severely decreased 30 - 44 mL/min/1.73m2 Severely decreased 15 - 29 mL/min/1.73m2 Kidney Failure < 15 mL/min/1.73m2 *Relative to young adult level Estimated glomerular filtration rate is determined by the 2020 CKD-EPI equation recommended by the National Kidney Foundation (A Unifying Approach to GFR Estimation: Recommendations of the NKF-ASK Task Force on Reassessing the Inclusion of Race in Diagnosing Kidney Disease, JASN 2020). The CKD-EPI equation should not be used for patients with unstable renal function and has not been validated in children and those over 70. Current interpretive data was last reviewed 2021. Blood 03/19/2025 5:23 PM CDT 03/19/2025 6:05 PM CDT Brooke Rashid NP LAB BLOOD ORDERABLES Final Result [facility] ([place]) 1 [facility] [place] [address] * (ABNORMAL) Phosphorus (03/19/2025 5:23 PM CDT) [facility] Phosphorus, pl 1.9(L) 2.3 - 4.5 mg/dL [facility] ([place] Blood 03/19/2025 5:23 PM CDT 03/19/2025 6:05 PM CDT Brooke Rashid DIRECTOR CUSTOM LAB BLOOD ORDERABLES Final Result [facility] ([place]) 1 [facility] [place] [address] * Magnesium (03/19/2025 5:23 PM CDT) [facility] Magnesium 2.5 1.4 - 2.5 mg/dL [facility] ([place]) Blood 03/19/2025 5:23 PM CDT 03/19/2025 6:05 PM CDT Brooke Rashid DIRECTOR CUSTOM LAB BLOOD ORDERABLES Final Result [facility] ([place]) 1 [facility] [place] [address] * (ABNORMAL) Comprehensive metabolic panel (03/19/2025 5:23 PM CDT) [facility] Sodium 138 135 - 145 mmol/L [facility] ([place]) Potassium, pl 3.6 3.3 - 4.9 mmol/L [facility] ([place]) Chloride 105 97 - 110 mmol/L [facility] ([place]) CO2 20(L) 22 - 32 mmol/L [facility] ([place]) Anion gap 13 2 - 15 mmol/L [facility] ([place]) BUN 6 6 - 25 mg/dL [facility] ([place]) Creatinine 0.51(L) 0.60 - 1.10 mg/dL [facility] ([place]) Glucose 136 70 - 199 mg/dL [facility] ([place]) Comment: Interpretive Data Fasting glucose >/= 126 mg/dl is diagnostic for diabetes. Fasting is defined as no caloric intake for at least 8 hours. Fasting glucose between 100 mg/dl to 125 mg/dl is diagnostic of prediabetes. In a patient with classic symptoms of hyperglycemia or hyperglycemic crisis, a random glucose >/= 200 mg/dl is diagnostic for diabetes. In the absence of unequivocal hyperglycemia, results should be confirmed by repeat testing. The classification and Diagnosis of Diabetes Diabetes Care 202; 46: S19-S40. Current interpretive data was last revised 2022. Calcium 8.6 8.5 - 10.3 mg/dL [facility] ([place]) Bilirubin, total 0.3 0.1 - 1.2 mg/dL [facility] ([place]) Protein, pl 7.2 6.5 - 8.5 g/dL [facility] ([place] Albumin 4.7 3.5 - 5.0 g/dL [facility] ([place]) Alk phos 69 40 - 130 Units/L [facility] ([place]) ALT 16 7 - 45 Units/L [facility] ([place]) AST 29 10 - 45 Units/L [facility] Blood 03/19/2025 5:23 PM CDT 03/19/2025 6:05 PM CDT Brooke Rashid DIRECTOR CUSTOM LAB BLOOD ORDERABLES Final Result [facility] ([place]) 1 [facility] [place] [address] * (ABNORMAL) Urinalysis reflex to microscopic and culture Urine (03/19/2025 4:10 PM CDT) Color, ur Straw Yellow Clarity, ur Clear Clear MICHAEL A ([place]) Specific gravity, ur 1.025 1.003 - 1.030 [facility] ([place]) pH, urine 7.0 [facility] ([place]) Comment: Interpretive Data U rine pH is affected by diet, medications, systemic acid-base disturbances, and renal tubular function. pH may affect urinary stone formation. For example, urine pH below 6.0 may help reduce the tendency for calcium phosphate stones and pH greater than 6.0 may reduce the tendency for uric acid stone formation. Source: [facility] Incipient Current Interpretive Data was last revised on 2017 Protein, ur ql Trace Negative [facility] ([place]) Glucose, ur ql Negative Negative [facility] ([place]) Ketones, ur 3+(A) Negative [facility] ([place]) Bilirubin, ur Negative Negative [facility] ([place]) Blood, ur Negative Negative [facility] ([place]) Urobilinogen, ur <2.0 <2.0 mg/dL [facility] ([place]) Nitrite, ur Negative Negative [facility] ([place]) Leukocyte esterase, ur Negative Negative [facility] ([place]) UA reflex comment Reflex conditions for microscopic UA and culture not met. [facility] ([place]) Urine 03/19/2025 4:10 PM CDT 03/19/2025 4:35 PM CDT Maury Black MD LAB MICROBIOLOGY - GENERAL ORD ERABLES Final Result [facility] 1 [facility] [place] [address] * (ABNORMAL) Drugs of Abuse Screen, Urine without Confirmation (03/19/2025 4:10 PM CDT) Amphetamine, ur Not Detected CutOff 500ng/mL [facility] ([place]) Comment: Interpretive Data - Amphetamines: Samples containing greater than 500 ng/mL d-methamphetamine or other cross-reacting amphetamine compounds are reported as positive. Amphetamine immunoassays are subject to significant false positive rates due to cross-reactivity of non-amphetamine drugs. Confirmatory testing required for definitive results. Current Interpretive Data was last reviewed 2023. Barbiturates, ur Not Detected CutOff 200ng/mL [facility] ([place]) Comment: Interpretive Data - Barbiturates: Samples containing greater than 200 ng/mL secobarbital or other cross-reacting barbiturate compounds are reported as positive. False positive and false negative results are possible. Confirmatory testing required for definitive results. Current Interpretive Data was last reviewed 2023. Benzodiazepines, ur Not Detected CutOff 100ng/mL [facility] ([place]) Comment: Interpretive Data - Benzodiazepines: Samples containing greater than 100 ng/mL nordiazepam or other cross-reacting compounds are reported as positive. False positive and false negative results are possible. Confirmatory testing required for definitive results. Current Interpretive Data was last reviewed 2023. Cannabinoids, ur Screen Positive, presumptive (A) CutOff 50 ng/mL [facility] ([place]) Comment: Interpretive Data - Cannabinoids: Samples containing greater than 50 ng/mL delta-9 THC -COOH or other cross- reacting compounds are reported as positive. False positive and false negative results are possible. Confirmatory testing required for definitive results. Current Interpretive Data was last reviewed 2023. Cocaine, ur Not Detected CutOff 150ng/mL [facility] ([place]) Comment: Interpretive Data - Cocaine: Samples containing greater than 150 ng/mL benzoylecgonine or other cross- reacting compounds are reported as positive. False positive and false negative results are possible. Confirmatory testing required for definitive results. Current Interpretive Data was last reviewed 2023. Fentanyl, Ur Not Detected CutOff 5 ng/mL [facility] ([place]) Comment: Interpretive Data - Fentanyl: Samples containing greater than 5 ng/mL norfentanyl, fentanyl, or other cross-reacting fentanyl compounds are reported as positive. False positive and false negative results are possible. Confirmatory testing required for definitive results. Current Interpretive Data was last reviewed 2023. Methadone, ur Not Detected CutOff 300ng/mL [facility] ([place]) Comment: Interpretive Data - Methadone: Samples containing greater than 300 ng/mL d,l-methadone or other cross-reacting compounds are reported as positive. False positive and false negative results are possible. Confirmatory testing required for definitive results. Current Interpretive Data was last reviewed 2023. Opiates, ur Not Detected CutOff 300ng/mL [facility] ([place]) Comment: Interpretive Data - Opiates: Samples containing greater than 300 ng/mL morphine or other cross-reacting compounds are reported as positive. False positive and false negative results are possible. Confirmatory testing required for definitive results. Current Interpretive Data was last reviewed 2023. Oxycodone, ur NOT DETECTED CutOff 100ng/mL [facility] ([place]) Comment: Interpretive Data - Oxycodone: Samples containing greater than 100 ng/mL oxycodone or other cross-reacting compounds are reported as positive. False positive and false negative results are possible. Confirmatory testing required for definitive results. Current Interpretive Data was last reviewed 2023. Phencyclidine, ur Not Detected CutOff 25 ng/mL [facility] ([place]) Comment: Interpretive Data - Phencyclidine: Samples containing greater than 25 ng/mL phencyclidine or other cross-reacting compounds are reported as positive. False positive and false negative results are possible. Confirmatory testing required for definitive results. Current Interpretive Data was last reviewed 2023. Urine Creatinine 53 mg/dL [facility]IN [facility] ([place]) Comment: Interpretive Data Urine Creatinine: < 10 mg/dL is extremely dilute = or > 10 but < 20 mg/dL is dilute = or > 20 mg/dL is normal Current Interpretive Data was last revised on 2017. Urine 03/19/2025 4:10 PM CDT 03/19/2025 4:36 PM CDT Narrative [facility] ([place]) - 03/19/2025 5:16 PM CDT Drug of Abuse screening is performed by immunoassay for medical purposes only. This is not to be used for Pain Management purposes. us Ankur Esteves MD LAB URINE ORDERABLES Final Result [facility]HA[facility] ([place]) 1 [facility] [place] [address] * Blood culture Blood (03/19/2025 2:56 PM CDT) Report Final Report: No growth Comment:Testing performed by : [facility], [address] [facility], [place]., [address] Blood 03/19/2025 2:56 PM CDT 03/19/2025 6:29 PM CDT Narrative [facility] ([place]) - 03/24/2025 7:00 AM CDT From a different site than #1. Collection->Peripheral 1. Blood cultures are incubated for 4 days on a continuously monitored blood culture system. The first report of a negative culture is issued within 24 hours of receipt of the specimen in the laboratory. 2. Positive culture results are reported as soon as they are detected. 3. The most important factor for detection of microbes in the setting of bloodstream infection is the volume of blood submitted for culture. Failure to collect an optimal blood volume can result in false negative blood cultures. 4. For pediatric patients, the recommended blood volume to collect follows a weight based strategy. See the electronic test catalog for collection instructions. 5. For positive blood cultures, a rapid molecular test may be performed for organism identification using the jaxson ePlex blood culture identification panel for gram positive (BCID-GP) and gram negative (BCID-GN) organisms. This nucleic acid amplification test detects microbial DNA in positive blood culture broth. This assay has been cleared by the [place] Food and Drug Administration and its performance characteristics have been verified by the [facility]. For questions about this culture, contact the Microbiology Laboratory at [phone]. Interpretive data was last revised on 24. Brooke Rashid NP LAB MICROBIOLOGY - G ENERAL ORDERABLES Final Result [facility] ([place]) 1 [facility] [place] [address] * Blood culture Blood (03/19/2025 2:46 PM CDT) Report Final Report: No growth Comment:Testing performed by : [facility], 1 [facility] [place]., [address] Blood 03/19/2025 2:46 PM CDT 03/19/2025 6:29 PM CDT Narrative MIHCAEL [facility] ([place]) - 03/24/2025 7:00 AM CDT Collection->Peripheral 1. Blood cultures are incubated for 4 days on a continuously monitored blood culture system. The first report of a negative culture is issued within 24 hours of receipt of the specimen in the laboratory. 2. Positive culture results are reported as soon as they are detected. 3. The most important factor for detection of microbes in the setting of bloodstream infection is the volume of blood submitted for culture. Failure to collect an optimal blood volume can result in false negative blood cultures. 4. For pediatric patients, the recommended blood volume to collect follows a weight based strategy. See the electronic test catalog for collection instructions. 5. For positive blood cultures, a rapid molecular test may be performed for organism identification using the jaxson ePlex blood culture identification panel for gram positive (BCID-GP) and gram negative (BCID-GN) organisms. This nucleic acid amplification test detects microbial DNA in positive blood culture broth. This assay has been cleared by the [place] Food and Drug Administration and its performance characteristics have been verified by the [facility]. For questions about this culture, contact the Microbiology Laboratory at [phone]. Interpretive data was last revised on 24. Brooke Rashid NP LAB MICROBIOLOGY - G ENERAL ORDERABLES Final Result Performing Organization Address City/[facility]/ZIP Co de Phone Number MICHAEL [facility]KINS ([facility] 1 [facility] [place] [address] * ECG 12 lead (03/19/2025 12:12 PM CDT) 03/19/2025 12:1 2 PM CDT Narrative [facility] - 03/19/2025 5:11 PM CDT Vent Rate: 78 bpm RR Interval: 764 msec MT Interval: 145 msec QRS Duration: 90 msec QT Interval: 411 msec QTC Interval: 444 msec P-R-T [place]: 70 - 94 - 45 degrees IMPRESSION: Baseline artifact, probable SINUS RHYTHM BORDERLINE RIGHT AXIS DEVIATION [QRS AXIS > 90] BORDERLINE ECG NO CHANGE FROM PREVIOUS TRACING NOTED Electronically Signed By: Venkata Stokes MD Brooke Rashid NP ECG ORDERABLES Prema l Result Performing Organization Address City/[facility]/ZIP Co de Phone Number [facility] [employer] [facility] * CT Abdomen Pelvis W Contrast (03/19/2025 8:31 AM CDT) Anatomical Region Laterality Modality Body N/A Computed Tomogra phy 03/19/2025 8:41 AM CDT Narrative 03/19/2025 9:03 AM CDT EXAM DESCRIPTION: CT ABDOMEN PELVIS W CONTRAST REASON FOR STUDY: Abdominal pain, acute, nonlocalized Complaint of nausea, vomiting, abdominal pain, not feeling well for last several hours, pt is an alcoholic. states that she had 2 shots of rubbing alcohol pain. Patient states that she does not feel good and she ran away into the toilet complaining of vomiting. TECHNIQUE: CT scan of the abdomen and pelvis performed with intravenous and without oral contrast using helical scanning technique with dynamic intravenous contrast injection. Reconstructed coronal and sagittal MPR images reviewed. All images stored on PACS. Automated exposure control was used as a dose optimization technique for this examination. CONTRAST TYPE/DOSE: 75mL of IOVERSOL 350 MG IODINE/ML INTRAVENOUS SYRINGE injected via intravenous COMPARISON: 12/03/2024 REFERENCE: Per ACR white paper recommendations, unless otherwise specified no follow-up imaging is recommended for incidental renal and adrenal lesions per consensus recommendations based on imaging criteria. Further lab evaluation could be pursued based on clinical findings. FINDINGS: Significantly motion degraded examination. Findings made within these confines. LOWER CHEST: No significant pulmonary abnormalities. No effusion. LIVER: No concerning lesions. GALLBLADDER/BILE DUCTS: No significant biliary ductal dilatation. SPLEEN: Normal size. No focal concerning lesions. PANCREAS: No significant ductal dilatation or discrete lesion. ADRENALS: No measurable nodule. KIDNEYS/URETERS: No hydronephrosis. No obstructing nephroureterolithiasis. BLADDER/URINARY: No significant wall thickening. REPRODUCTIVE: No concerning adnexal lesion, although the ovaries are poorly evaluated by CT. GASTROINTESTINAL: No dilated bowel loops. No obvious wall thickening. Unremarkable appearance of the appendix (2; 101). LYMPH NODES: No pathologically enlarged abdominal or pelvic lymphadenopathy. PERITONEUM/RETROPERITONEUM: No ascites or free air. VASCULATURE: No abdominal aortic aneurysm. MUSCULOSKELETAL: No significant abnormality. OTHER: No significant abnormality. IMPRESSION: Significantly motion degraded examination. Within these confines: No acute abnormality with the abdomen or pelvis. THIS IS AN ELECTRONICALLY VERIFIED FINAL REPORT 03/19/2025 9:03 AM - Electronically signed by Jose Lilly M.D. NS: NS Report ID: [id number] Reading Location: [id number] Procedure Note Jose Lilly MD - 03/19/2025 EXAM DESCRIPTION: CT ABDOMEN PELVIS W CONTRAST REASON FOR STUDY: Abdominal pain, acute, nonlocalized Complaint of nausea, vomiting, abdominal pain, not feeling well for last several hours, pt is an alcoholic. states that she had 2 shots of rubbing alcohol pain. Patient states that she does not feel good and sheran away into the toilet complaining of vomiting. TECHNIQUE: CT scan of the abdomen and pelvis performed with intravenousand without oral contrast using helical scanning technique with dynamic intravenous contrast injection. Reconstructed coronal and sagittal MPRimages reviewed. All images stored on PACS. Automated exposure control was usedas a dose optimization technique for this examination. CONTRAST TYPE/DOSE: 75mL of IOVERSOL 350 MG IODINE/ML INTRAVENOUSSYRINGE injected via intravenous COMPARISON: 12/03/2024 REFERENCE: Per ACR white paper recommendations, unless otherwise specifiedno follow-up imaging is recommended for incidental renal and adrenal lesionsper consensus recommendations based on imaging criteria. Further labevaluation could be pursued based on clinical findings. FINDINGS: Significantly motion degraded examination. Findings made within these confines. LOWER CHEST: No significant pulmonary abnormalities. No effusion. LIVER: No concerning lesions. GALLBLADDER/BILE DUCTS: No significant biliary ductal dilatation. SPLEEN: Normal size. No focal concerning lesions. PANCREAS: No significant ductal dilatation or discrete lesion. ADRENALS: No measurable nodule. KIDNEYS/URETERS: No hydronephrosis. No obstructingnephroureterolithiasis. BLADDER/URINARY: No significant wall thickening. REPRODUCTIVE: No concerning adnexal lesion, although the ovaries arepoorly evaluated by CT. GASTROINTESTINAL: No dilated bowel loops. No obvious wall thickening. Unremarkable appearance of the appendix (2; 101). LYMPH NODES: No pathologically enlarged abdominal or pelviclymphadenopathy. PERITONEUM/RETROPERITONEUM: No ascites or free air. VASCULATURE: No abdominal aortic aneurysm. MUSCULOSKELETAL: No significant abnormality. OTHER: No significant abnormality. IMPRESSION: Significantly motion degraded examination. Within these confines: No acute abnormality with the abdomen or pelvis. THIS IS AN ELECTRONICALLY VERIFIED FINAL REPORT 03/19/2025 9:03 AM - Electronically signed by Jose Lilly M.D. NS: NS Report ID: [id number] Reading Location: [id number] us Maury Black MD IMG CT PROCEDURES Final Result * eGFR (03/19/2025 8:03 AM CDT) eGFR >90 >=60 mL/min/1. 73 m2 Comment: Interpretive Data Reference Interval Normal >/= 90 mL/min/1.73m2 Mildly decreased* 60 - 89 mL/min/1.73m2 Mildly to moderately decreased 45 - 59 mL/min/1.73m2 Moderately to severely decreased 30 - 44 mL/min/1.73m2 Severely decreased 15 - 29 mL/min/1.73m2 Kidney Failure < 15 mL/min/1.73m2 *Relative to young adult level Estimated glomerular filtration rate is determined by the 2020 CKD-EPI equation recommended by the National Kidney Foundation (A Unifying Approach to GFR Estimation: Recommendations of the NKF-ASK Task Force on Reassessing the Inclusion of Race in Diagnosing Kidney Disease, JASN 2020). The CKD-EPI equation should not be used for patients with unstable renal function and has not been validated in children and those over 70. Current interpretive data was last reviewed 2021. Blood 03/19/2025 8:03 AM CDT 03/19/2025 8:07 AM CDT us Ankur Esteves MD LAB BLOOD ORDERABLES Final Result [facility] ([place]) 1 [facility] [place] [address] * (ABNORMAL) Basic metabolic panel (03/19/2025 8:03 AM CDT) Sodium 137 135 - 145 mmol/L [facility] ([place]) Potassium, pl 2.9(C) 3.3 - 4.9 mmol/L [facility] ([place]) Comment:Critical Result call ed by [email or web address] at 2025-03-19 08:27:55. Result Read Back by EMILEE SUTHERLAND-ER Chloride 101 97 - 110 mmol/L [facility] ([place]) CO2 16(L) 22 - 32 mmol/L [facility] ([place]) Anion gap 20(H) 2 - 15 mmol/L [facility] ([place]) BUN 10 6 - 25 mg/dL [facility] ([place]) Creatinine 0.56(L) 0.60 - 1.10 mg/dL [facility] ([place]) Glucose 169 70 - 199 mg/dL [facility] ([place]) Comment: Interpretive Data Fasting glucose >/= 126 mg/dl is diagnostic for diabetes. Fasting is defined as no caloric intake for at least 8 hours. Fasting glucose between 100 mg/dl to 125 mg/dl is diagnostic of prediabetes. In a patient with classic symptoms of hyperglycemia or hyperglycemic crisis, a random glucose >/= 200 mg/dl is diagnostic for diabetes. In the absence of unequivocal hyperglycemia, results should be confirmed by repeat testing. The classification and Diagnosis of Diabetes Diabetes Care 2021; 46: S19-S40. Current interpretive data was last revised 2022. Calcium 8.7 8.5 - 10.3 mg/dL [facility] ([place]) Blood 03/19/2025 8:03 AM CDT 03/19/2025 8:07 AM CDT us Ankur Esteves MD LAB BLOOD ORDERABLES Final Result MICHAEL [facility] ([place]) 1 [facility] [place] [address] * hCG, blood, quantitative (03/19/2025 6:48 AM CDT) hCG, quant <5.0 0.0 - 5.0 IUnits/L [facility] ([place]) Comment: Interpretive Data Male: < 5 IU/L Non- premenopausal Female: <5 IU/L The Iain hCG Beta Quant assay procedure was used. Results from different manufacturers or methods may not be comparable. Serial testing should be performed using the same method. Interpretive Data was last revised on 2023 Blood 03/19/2025 6:48 AM CDT 03/19/2025 6:51 AM CDT Ankur Esteves MD LAB BLOOD ORDERABLES Final Result [facility]HAEL [facility] ([place]) 1 [facility] [place] [address] * (ABNORMAL) Osmolality, blood (03/19/2025 6:48 AM CDT) Osmo 317(H) 275 - 300 mOsm/kg Comment:Testing performed by : [facility], 1 [facility] [place]., [address] Blood 03/19/2025 6:48 AM CDT 03/19/2025 12:19 PM CDT Result [facility] Ankur Esteves MD LAB BLOOD ORDERABLES Final Result Performing Organization Address City/[facility] Co de Phone Number MICHAEL [facility] ([place]) 1 [facility] [place] [address] * (ABNORMAL) Blood gas, venous (03/19/2025 6:48 AM CDT) pH, Venous 7.41 7.32 - 7.43 PCO2, Venous 36(L) 40 - 50 mmHg [facility] ([place]) PO2, Venous 45 mmHg [facility] ([place]) Comment: Interpretive Data No reference range established. Current interpretive data was last revised 2017. HCO3 Venous, Calculated 22 20 - 30 mmol/L [facility] ([place]) BE, venous -1 mmol/L [facility] ([place]) Comment: Interpretive Data No Reference Range Established Current Interpretive Data was last revised on 2017. Blood 03/19/2025 6:48 AM CDT 03/19/2025 6:51 AM CDT Ankur Esteves MD LAB BLOOD ORDERABLES Final Result [facility]HAEL [facility] ([place]) 1 [facility] [place] [address] * Acetaminophen level (03/19/2025 6:48 AM CDT) Acetaminophen <5 <=5 mcg/mL DENNIS [facility] ([place]) Comment: Markedly elevated levels of Acetaminophen and it's metabolites may lead to false low test results for cholesterol, HDL, triglycerides and uric acid with the manufacturers test methods used by our lab. Interpretive Data Significant hepatic injury may occur and treatment with n-acetyl cysteine is generally recommended if the acetaminophen level exceeds: 150 mcg/mL at 4 hours after ingestion 75 mcg/mL at 8 hours after ingestion 38 mcg/mL at 12 hours after ingestion 19 mcg/mL at 16 hours after ingestion Consult toxicology or poison control ([phone]) for unknown ingestion time. Current interpretive data was last revised 2023. Blood 03/19/2025 6:48 AM CDT 03/19/2025 6:51 AM CDT us Ankur Esteves MD LAB BLOOD ORDERABLES Final Result Performing Organization Address [facility]/ZIP Co de Phone Number MICHAEL [facility] ([place]) 1 [facility] [place] [address] * Salicylate level (03/19/2025 6:48 AM CDT) Salicylate <5.0 <=5.0 mg/dL [facility] ([place]) Comment: Interpretive Data Toxic: 30 mg/dL or greater. Current interpretive data was last revised 2023. Blood 03/19/2025 6:48 AM CDT 03/19/2025 6:51 AM CDT Ankur Esteves MD LAB BLOOD ORDERABLES Final Result [facility]HAEL [facility] ([place]) 1 [facility] [place] [address] * ECG 12 lead (03/19/2025 6:43 AM CDT) 03/19/2025 6:43 AM CDT Narrative [facility] - 03/19/2025 8:35 AM CDT Vent Rate: 74 bpm RR Interval: 803 msec MT Interval: 0 msec QRS Duration: 104 msec QT Interval: 424 msec QTC Interval: 452 msec P-R-T [place]: [id number] - 75 - 55 degrees IMPRESSION: Baseline artifact, probable sinus rhythm NONSPECIFIC T-WAVE ABNORMALITY ABNORMAL RHYTHM ECG Recommend repeat EKG with stable baseline Electronically Signed By: Venkata Stokes MD us Ankur Esteves MD ECG ORDERABLES Final Resu lt [facility] * MT CRITICAL CARE ILL/INJURED PATIENT INIT 30-74 MIN (03/19/2025 6:29 AM CDT) Narrative Ankur Esteves MD - 03/19/2025 6:29 AM CDT Ankur Esteves MD 03/19/2025 2:15 PM Critical Care Performed by: Ankur Esteves MD Authorized by: Ankur Esteves MD Critical care provider statement: As reflected in the history, physical exam, orders, notes, and/or MDM, I was personally present while the patient was critically ill and provided critical care services for 45 minutes, excluding time involved in separately billable procedures. Critical care was necessary to treat or prevent imminent or life-threatening deterioration of the following condition(s): acute electrolyte derangement acute ingestion Critical care was time spent by me providing the following: resuscitation with fluids, serial bedside patient exams, interpretation of bedside monitors, imaging, and arterial/venous lab draws, continuous pulse oximetry and continuous telemetry I provided emergent necessary critical care medicine services to this patient. I ordered and reviewed test results and/or imaging studies. I spent time discussing the management of this critically ill patient with consultants and the medical staff. I spent time discussing the management and therapeutic options for this critically ill patient with the patient themselves or with the appropriate designated surrogate decision-maker. I spent time documenting in the medical record. I admitted this patient to a continuous cardiac monitored bed. us Ankur Esteves MD IN CLINIC/BEDSIDE ORDERABL ES Final Result * eGFR (03/19/2025 4:18 AM CDT) Pathologist [facility] eGFR >90 >=60 mL/min/1. 73 m2 Comment: Interpretive Data Reference Interval Normal >/= 90 mL/min/1.73m2 Mildly decreased* 60 - 89 mL/min/1.73m2 Mildly to moderately decreased 45 - 59 mL/min/1.73m2 Moderately to severely decreased 30 - 44 mL/min/1.73m2 Severely decreased 15 - 29 mL/min/1.73m2 Kidney Failure < 15 mL/min/1.73m2 *Relative to young adult level Estimated glomerular filtration rate is determined by the 2020 CKD-EPI equation recommended by the [employer] (A Unifying Approach to GFR Estimation: Recommendations of the NKF-ASK Task Force on Reassessing the Inclusion of Race in Diagnosing Kidney Disease, JASN 2020). The CKD-EPI equation should not be used for patients with unstable renal function and has not been validated in children and those over 70. Current interpretive data was last reviewed 2021. Blood 03/19/2025 4:18 AM CDT 03/19/2025 4:21 AM CDT us Maury Black MD LAB BLOOD ORDERABLES Final Res ult [facility] ([place]) 1 [facility] [place] [address] * (ABNORMAL) CBC with auto differential (03/19/2025 4:18 AM CDT) WBC 25.57(H) 3.80 - 9.90 K/cumm Hgb 13.4 11.9 - 15.5 g/dL [facility] ([place]) Hct 39.9 35.6 - 45.5 % [facility] [place] Plt 468(H) 150 - 400 K/cumm [facility] [place] MPV 9.1 9.1 - 12.3 fL [facility] [place] RBC 4.93 3.90 - 5.20 M/cumm [facility] MCV 80.9(L) 81.3 - 96.4 fL [facility] ([place]) MCH 27.2 27.1 - 33.3 pg [facility] ([place]) MCHC 33.6 32.3 - 35.7 g/dL [facility] ([place]) RDW CV 13.1 11.1 - 14.9 % [facility] [place] RDW SD 37.8 35.7 - 48.1 fL [facility] ([place]) NRBC abs 0.00 0.00 - 0.01 K/cumm [facility] ([place]) Blood Venous blood specimen / Unknown 03/19/2025 4:18 AM CDT 03/19/2025 4:21 AM CDT us Maury Black MD LAB BLOOD ORDERABLES Final Res ult [facility] ([place]) [facility] [place] [address] * (ABNORMAL) Manual Differential (03/19/2025 4:18 AM CDT) Differential Manual Cells Counted 100 [facility] ([place] Neutrophil abs 23.52(H) 1.50 - 6.50 K/cumm [facility] ([place] Lymphocyte abs 1.79 0.80 - 3.30 K/cumm [facility] ([place]) Monocyte abs 0.26 0.20 - 0.80 K/cumm [facility] Neutrophil pct 91.0 % [facility] ([place] Comment: Interpretive Data Percent cell count reference ranges are not reported, since discordance with absolute values may lead to misinterpretation of CBC data. Current Interpretive Data was last revised on 2017. Lymphocyte pct 7.0 % [facility] ([place] Comment: Interpretive Data Percent cell count reference ranges are not reported, since discordance with absolute values may lead to misinterpretation of CBC data. Current Interpretive Data was last revised on 2017. Monocyte pct 1.0 % [facility] ([place]) Comment: Interpretive Data Percent cell count reference ranges are not reported, since discordance with absolute values may lead to misinterpretation of CBC data. Current Interpretive Data was last revised on 2017. Band Neutrophil pct 1.0 0.0 - 5.0 % [facility] ([place]) RBC morphology Consistent with RBC Indicies [facility] [place] Hypochromasia 3-7/HPF(A) [facility] ([place] Platelet estimate Adequate CE [facility] ([place] Platelet clumping Present(A) [facility] ([place] Blood 03/19/2025 4:18 AM CDT 03/19/2025 4:21 AM CDT Maury Black MD LAB BLOOD ORDERABLES Final Res ult Performing Organization Address City/[facility]/ZIP Co de Phone Number [facility] ([place]) 1 [facility] [place] [address] * Lipase (03/19/2025 4:18 AM CDT) Lipase 20 10 - 99 Units/L [facility] ([place]) Blood Venous blood specimen / Unknown 03/19/2025 4:18 AM CDT 03/19/2025 4:21 AM CDT Maury Black MD LAB BLOOD ORDERABLES Final Res ult Performing Organization Address City/[facility]/ZIP Co de Phone Number [facility] ([place]) [address] [facility] [place] [address] * Ethanol (03/19/2025 4:18 AM CDT) Ethanol <10 <=10 mg/dL [facility] ([place]) Comment: Interpretive Data Legal limit of intoxication > or = 80 mg/dL Levels > or = 400 mg/dL are potentially TOXIC. Current interpretive data was last revised on 2018. Blood 03/19/2025 4:18 AM CDT 03/19/2025 4:21 AM CDT us Maury Black MD LAB BLOOD ORDERABLES Final Res ult [facility] ([place]) 1 [facility] [place] [address] * (ABNORMAL) Comprehensive metabolic panel (03/19/2025 4:18 AM CDT) Sodium 137 135 - 145 mmol/L [facility] ([place]) Potassium, pl 3.2(L) 3.3 - 4.9 mmol/L [facility] [place] Chloride 97 97 - 110 mmol/L [facility] [place] CO2 19(L) 22 - 32 mmol/L [facility] [place] Anion gap 21(H) 2 - 15 mmol/L [facility] [place] BUN 11 6 - 25 mg/dL [facility] [place] Creatinine 0.70 0.60 - 1.10 mg/dL [facility] [place] Glucose 241(H) 70 - 199 mg/dL [facility] ([place] Comment: Interpretive Data Fasting glucose >/= 126 mg/dl is diagnostic for diabetes. Fasting is defined as no caloric intake for at least 8 hours. Fasting glucose between 100 mg/dl to 125 mg/dl is diagnostic of prediabetes. In a patient with classic symptoms of hyperglycemia or hyperglycemic crisis, a random glucose >/= 200 mg/dl is diagnostic for diabetes. In the absence of unequivocal hyperglycemia, results should be confirmed by repeat testing. The classification and Diagnosis of Diabetes Diabetes Care 2021; 46: S19-S40. Current interpretive data was last revised 2022. Calcium 9.6 8.5 - 10.3 mg/dL [facility] ([place]) Bilirubin, total 0.3 0.1 - 1.2 mg/dL [facility] ([place]) Protein, pl 8.1 6.5 - 8.5 g/dL [facility] ([place]) Albumin 5.2(H) 3.5 - 5.0 g/dL [facility] ([place] Alk phos 86 40 - 130 Units/L [facility] [place] ALT 17 7 - 45 Units/L [facility] [place] AST 34 10 - 45 Units/L [facility] ([place] Blood 03/19/2025 4:18 AM CDT 03/19/2025 4:21 AM CDT us Maury Black MD LAB BLOOD ORDERABLES Final Res ult [facility] ([place]) 1 [facility] [place] [address] from Last 3 Months Insurance [facility] ACCESS Advance Directives For more information, please contact: [phone] * Full Code (Latest Code Status on File) Date Activated Date Inactivated Comments 03/19/2025 9:53 AM 03/23/2025 6:36 PM * Full Code Date Activated Date Inactivated Comments 12/03/2024 2:07 PM 12/08/2024 2:40 PM * Full Code Date Activated Date Inactivated Comments 12/03/2024 1:35 PM 12/03/2024 2:07 PM Care Teams Combined Rail [employer] Relationship Specialty Start Date End Date Janet Meyers NP [address] [place] [address] PCP - General Family Medicine 12/03/24 Wes Segura MD NPI: [id number] [place] [address] [place] [address] Consulting Physician Gastroenterology 12/08/24
--- OUTSIDE RECORDS SUMMARY | 2025-06-13 08:47 | XMS_ITS | Patient Health Record ---
Author Organization Formerly [facility] Address [address] [place] [address] Phone [phone] Care Team Providers Care Math And Science Instructor Name Role Phone Sparr Janet Primary Care Provider [phone] Fransico Ojeda Unavailable [phone] Julia Umanzor Unavailable [phone] Licha Mendoza Unavailable [phone] Allergies No Known Allergies Results Component Value Reference Range Flag Notes UA/M w/rflx Culture, Routine Order date: 01/17/2025 Reviewed date:02/01/2025 01:11:15 PM Interpretation: Performing Lab: Notes/Report: TSH Rfx on Abnormal to Free T4 Order date: 01/17/2025 Reviewed date:02/01/2025 01:12:26 PM Interpretation: Performing Lab: Notes/Report: Hepatitis C Virus Antibody w /Rflx to Quantitative Real-time PCR ([id number]) Order date: 01/17/2025 Reviewed date:02/01/2025 01:11:55 PM Interpretation: Performing Lab: Notes/Report: C-Reactive Protein, Quant Order date: 01/17/2025 Reviewed date:02/01/2025 01:12:42 PM Interpretation: Performing Lab: Notes/Report: Hepatitis B Surf Ab Quant* Order date: 01/17/2025 Reviewed date:02/01/2025 01:11:43 PM Interpretation: Performing Lab: Notes/Report: Hepatitis B Surface Antigen (HBsAg Screen) Order date: 01/17/2025 Reviewed date:02/01/2025 01:12:07 PM Interpretation: Performing Lab: Notes/Report: CBC With Differential/Platel et* Order date: 01/17/2025 Reviewed date:02/01/2025 01:12:55 PM Interpretation: Performing Lab: Notes/Report: Lipase, Serum Order date: 01/17/2025 Reviewed date:02/01/2025 01:13:46 PM Interpretation: Performing Lab: Notes/Report: Iron and TIBC* Order date: 01/17/2025 Reviewed date:02/01/2025 01:12:48 PM Interpretation: Performing Lab: Notes/Report: HIV Screen *HIV 1, 2 Ab, p24 Ag ([id number]) Order date: 01/17/2025 Reviewed date:02/01/2025 01:12:15 PM Interpretation: Performing Lab: Notes/Report: H. pylori Stool Ag, EIA Order date: 01/17/2025 Reviewed date:02/21/2025 03:51:27 PM Interpretation:Normal Performing Lab: Notes/Report: Normal UA/M w/rflx Culture, Routine Order date: 01/17/2025 Reviewed date:01/18/2025 03:36:11 PM Interpretation: Performing Lab:[facility] [address], Phone - [phone], Director - Breonna Notes/Report: Specific [place] 1.015 1.005-1.030 pH 6.0 5.0-7.5 Urine-Color Yellow Yellow Appearance Clear Clear WBC Esterase Negative Negative Protein Negative Negative/Trace Glucose Negative Negative Ketones Negative Negative Occult Blood Negative Negative Bilirubin Negative Negative Urobilinogen,Semi-Qn 0.2 0.2-1.0 mg/dL Nitrite, Urine Negative Negative Microscopic Examination Microscopic foll ows if indicated. Microscopic Examination See below: Microscopic was indicated and was performed. Urinalysis Reflex This sp ecimen will not reflex to a Urine Culture. WBC 0-5 0 - 5 /hpf RBC None seen 0 - 2 /hpf Epithelial Cells (non renal) 0-10 0 - 10 /hpf Casts None seen None seen /lpf Bacteria Few None seen/Few CBC With Differential/Platel et* Order date: 01/17/2025 Reviewed date:01/18/2025 03:36:11 PM Interpretation: Performing Lab:[facility], [address] [facility], Phone - [phone], Director - Breonna Notes/Report: WBC 6.1 3.4-10.8 x10E3/uL RBC 4.90 3.77-5.28 x10E6/uL Hemoglobin 13.0 11.1-15.9 g/dL Hematocrit 43.0 34.0-46.6 % MCV 88 79-97 fL MCH 26.5 26.6-33.0 pg L MCHC 30.2 31.5-35.7 g/dL L RDW 15.3 11.7-15.4 % Platelets 300 150-450 x10E3/uL Neutrophils 65 Not Estab. % Lymphs 26 Not Estab. % Monocytes 7 Not Estab. % Eos 2 Not Estab. % Basos 0 Not Estab. % Neutrophils (Absolute) 4.0 1.4-7.0 x10E3/uL Lymphs (Absolute) 1.6 0.7-3.1 x10E3/uL Monocytes(Absolute) 0.4 0.1-0.9 x10E3/uL Eos (Absolute) 0.1 0.0-0.4 x10E3/uL Baso (Absolute) 0.0 0.0-0.2 x10E3/uL Immature Granulocytes 0 Not Estab. % Immature Grans (Abs) 0.0 0.0-0.1 x10E3/uL CBC With Differential/Platel et* Order date: 10/09/2024 Reviewed date:01/18/2025 03:36:11 PM Interpretation: Performing Lab:[facility], [address] [place], Phone - [phone], Director - Breonna Notes/Report: WBC 7.5 3.4-10.8 x10E3/uL RBC 4.82 3.77-5.28 x10E6/uL Hemoglobin 12.9 11.1-15.9 g/dL Hematocrit 41.4 34.0-46.6 % MCV 86 79-97 fL MCH 26.8 26.6-33.0 pg MCHC 31.2 31.5-35.7 g/dL L RDW 12.7 11.7-15.4 % Platelets 352 150-450 x10E3/uL Neutrophils 67 Not Estab. % Lymphs 27 Not Estab. % Monocytes 5 Not Estab. % Eos 1 Not Estab. % Basos 0 Not Estab. % Neutrophils (Absolute) 5.0 1.4-7.0 x10E3/uL Lymphs (Absolute) 2.0 0.7-3.1 x10E3/uL Monocytes(Absolute) 0.4 0.1-0.9 x10E3/uL Eos (Absolute) 0.1 0.0-0.4 x10E3/uL Baso (Absolute) 0.0 0.0-0.2 x10E3/uL Immature Granulocytes 0 Not Estab. % Immature Grans (Abs) 0.0 0.0-0.1 x10E3/uL CMP 14 Comprehensive Metabol ic Panel* Order date: 10/09/2024 Reviewed date:01/18/2025 03:36:11 PM Interpretation: Performing Lab:[facility] [place], [address] [facility], Phone - [phone], Director - Breonna Notes/Report: Glucose 88 70-99 mg/dL BUN 8 6-20 mg/dL Creatinine 0.72 0.57-1.00 mg/dL eGFR 120 >59 mL/min/1.73 BUN/Creatinine Ratio 11 9-23 Sodium 141 134-144 mmol/L Potassium 4.2 3.5-5.2 mmol/L Chloride 100 96-106 mmol/L Carbon Dioxide, Total 24 20-29 mmol/L Calcium 9.4 8.7-10.2 mg/dL Protein, Total 7.0 6.0-8.5 g/dL Albumin 4.7 4.0-5.0 g/dL Globulin, Total 2.3 1.5-4.5 g/dL Bilirubin, Total 0.2 0.0-1.2 mg/dL Alkaline Phosphatase 100 44-121 IU/L AST (SGOT) 42 0-40 IU/L H ALT (SGPT) 20 0-32 IU/L HIV Screen *HIV 1, 2 Ab, p24 Ag ([id number]) Order date: 10/09/2024 Reviewed date:01/18/2025 03:36:11 PM Interpretation: Performing Lab:[facility] [place], [address] [facility], Phone - [phone], Director - [facility] Notes/Report: HIV Ab/p24 Ag Screen Non Reactive Non Reactive HIV-1/HIV-2 antibodies and HIV-1 p24 antigen were NOT detected. There is no laboratory evidence of HIV infection. HIV Negative 12 Panel Urine Drug Screen Order date: 10/09/2024 Reviewed date:10/09/2024 12:43:29 PM Interpretation: Performing Lab: Notes/Report: THC POS HUGH neg MOP (OPI) neg AMP neg MET neg BAR neg BZO POS MDMA neg MTD neg OXY neg PCP neg BUP neg QuantiFERON-TB Gold Plus ([id number]) Order date: 10/09/2024 Reviewed date:01/18/2025 03:36:11 PM Interpretation: Performing Lab:[facility] [place], [address] [facility], Phone - [phone], Director - [facility] Notes/Report: QuantiFERON Incubation Incubation performed. QuantiFERON-TB Gold Plus Negative Negative No response to M tuberculosis antigens detected. Infection with M tuberculosis is unlikely, but high risk individuals should be considered for additional testing (ATS/IDSA/CDC Clinical Practice Guidelines, 2017). The reference range is an Antigen minus Nil result of <0.35 IU/mL. Chemiluminescence immunoassay methodology QuantiFERON Criteria QuantiFERON-TB Gold Plus is a qualitative indirect test for M tuberculosis infection (including disease) and is intended for use in conjunction with risk assessment, radiography, and other medical and diagnostic evaluations. The QuantiFERON-TB Gold Plus result is determined by subtracting the Nil value from either TB antigen (Ag) value. The Mitogen tube serves as a control for the test. QuantiFERON TB1 Ag Value 0.02 QuantiFERON TB2 Ag Value 0.02 QuantiFERON Nil Value 0.01 QuantiFERON Mitogen Value >10.00 Test, Urine Order date: 10/09/2024 Reviewed date:10/09/2024 12:42:05 PM Interpretation: Performing Lab: Notes/Report: Test, Urine neg Negative - Negative Breathalyzer Order date: 10/09/2024 Reviewed date:10/09/2024 12:41:37 PM Interpretation: Performing Lab: Notes/Report: GUSTAVO 0.000 Magnesium, Serum* Order date: 10/09/2024 Reviewed date:01/18/2025 03:36:11 PM Interpretation: Performing Lab:[facility] [address] [place] [address], Phone - [phone], Director - [facility] Notes/Report: Magnesium 1.9 1.6-2.3 mg/dL Phosphorus, Serum* Order date: 10/09/2024 Reviewed date:01/18/2025 03:36:11 PM Interpretation: Performing Lab:[facility] [address] [place] [address], Phone - [phone], Director - [facility] Notes/Report: Phosphorus 3.6 3.0-4.3 mg/dL TSH Rfx on Abnormal to Free T4 Order date: 01/17/2025 Reviewed date:01/18/2025 03:36:11 PM Interpretation: Performing Lab:[facility] [place] [address] [place] [address], Phone - [phone], [facility] Notes/Report: TSH 1.070 0.450-4.500 uIU/mL Hepatitis C Virus Antibody w /Rflx to Quantitative Real-time PCR ([id number]) Order date: 01/17/2025 Reviewed date:01/18/2025 03:36:11 PM Interpretation: Performing Lab:[facility] [address] [place] [address], Phone - [phone], Director - [facility] Notes/Report: HCV Ab Non Reactive Non Reactive Interpretation: Not infected with HCV unless early or acute infection is suspected (which may be delayed in an immunocompromised individual), or other evidence exists to indicate HCV infection. C-Reactive Protein, Quant Order date: 01/17/2025 Reviewed date:01/18/2025 03:36:11 PM Interpretation: Performing Lab:[facility] [address] [place] [address], Phone - [phone], [facility] Notes/Report: C-Reactive Protein, Quant <1 0-10 mg/L Specimen Status Report TNP Test not performed. No stool specimen received. TEST: [id number] Pancreatic Elastase, Fecal 145349 Calprotectin, Fecal [id number] H. pylori Stool Ag, EIA Hepatitis B Surf Ab Quant* Order date: 01/17/2025 Reviewed date:01/18/2025 03:36:11 PM Interpretation: Performing Lab:[address], Phone - [phone], [facility]/Report: Hepatitis B Surf Ab Quant <3.5 Immunity>10 mIU/mL L Status of Immunity Anti-HBs Level Inconsistent with Immunity 0.0 - 10.0 Consistent with Immunity >10.0 Hepatitis B Surface Antigen (HBsAg Screen) Order date: 01/17/2025 Reviewed date:01/18/2025 03:36:11 PM Interpretation: Performing Lab:[facility], [address] [place] [address], Phone - [phone], [facility] Notes/Report: HBsAg Screen Negative Negative Lipase, Serum Order date: 01/17/2025 Reviewed date:01/18/2025 03:36:11 PM Interpretation: Performing Lab:[address], Phone - [phone], [facility] Notes/Report: Lipase 41 14-72 U/L Iron and TIBC* Order date: 01/17/2025 Reviewed date:01/18/2025 03:36:11 PM Interpretation: Performing Lab:[address], Phone - [phone], [facility] Notes/Report: Iron Bind.Cap.(TIBC) 356 250-450 ug/dL UIBC 270 131-425 ug/dL Iron 86 27-159 ug/dL Iron Saturation 24 15-55 % HIV Screen *HIV 1, 2 Ab, p24 Ag ([id number]) Order date: 01/17/2025 Reviewed date:01/18/2025 03:36:11 PM Interpretation: Performing Lab:[address], Phone - [phone], [facility] Notes/Report: HIV Ab/p24 Ag Screen Non Reactive Non Reactive HIV Negative HIV-1/HIV-2 antibodies and HIV-1 p24 antigen were NOT detected. There is no laboratory evidence of HIV infection. 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. Letter to patient Clinical Notes [facility] [place] [address], , Referral Priority Routine Referral Date 04/30/2025 Referral Status Open Reason Colonoscopy for abd pain, diarrhea, elevated fecal calprotectin Diagnosis 1 Abdominal pain (R10. 9) Referral Organization [facility] Referring Provider First Name Fransico Referring Provider Last Name Rusty Referring Provider Speciality Internal edicine Referred Provider Specialty Gastroentero logy General Notes Ronel Shetty RN 02:28:37 PM >call to client to confirm insurance client reports her insurance is [employer] she is unable to give her ID number at this time, Ronel Shetty RN 05/04/2025 03:48:21 PM >outbound call to client obtained voice mail message left to return call to obtain insurance information Referral Priority Routine Addressed Referral details can be found under 'Consultation Request Notes' section Medications Medication SIG (Take, Route, Frequency, Duration) Notes Start Date End Date Diagnosis (ICD Code) Status hydrOXYzine HCl 50 MG Tablet 1 tablet Orally every 6 hours; Duration: 30 days As needed KATHERIN (generalized anxiety disorder) (ICD_10 - F41.1) Active cloNIDine HCl ER 0.1 MG Tablet Extended Release 12 Hour 1 tablet at bedtime Orally Once a day; Duration: 30 days KATHERIN (generaliz ed anxiety disorder) (ICD_10 - F41.1) Active FLUoxetine HCl 20 MG Capsule 1 capsule Orally Once a day; Duration: 30 days Mood disorder (ICD_10 - F39) Active QUEtiapine Fumarate 100 MG Tablet 0.5 tablet every morning and noon, 1 tablet every evening Orally 3 times a day; Duration: 30 days Mood disorder (ICD_10 - F39) Active traZODone HCl 100 MG Tablet 1 tablet at bedtime Orally Once a day; Duration: 30 days As needed Insomnia due to medical condition (ICD_10 - G47.01) Active Gabapentin 600 MG Tablet 1 tablet Oral three times daily; Duration: 30 days KATHERIN (generalized anxiety disorder) (ICD_10 - F41.1) Active lamoTRIgine 100 MG Tablet 1 tablet Orally once daily; Duration: 30 days Mood disorder (ICD_10 - F39) Active Pantoprazole Sodium 40 MG Tablet Delayed Release 1 tablet 1/2 to 1 hour before morning meal Orally Once a day; Duration: 30 day(s) 04/02/2025 Active Multi Vitamin - Tablet 1 tablet Orally Once a day; Duration: 30 days 10/09/2024 KATHERIN (generaliz ed anxiety disorder) (ICD_10 - F41.1) Active Social History Tobacco Use: Social History Observation Description Date Details (start date - stop date) Current Smoker 06/14/2020 - NA Sex Observation Social History Observation Description Sex Observation Female Sexual Orientation Social History Observation Description Sexual Orientation Straight or heterose xual Gender Identity Social History Observation Description Gender Identity Female SDOH Assessments Date Tool Assessment Assessment LOINC Value Assessment Notes Goals Interventions 025 DONNIE (LOINC: 79794-0 ) Total Score: 1 Please specify Case Management Assessment First Visit Date Completed/Updated: 10/09/2024 What is your current housing situation? 30459-1 I have housing (XP05432-0) Are you worried about losing your housing? 87628-3 No (LA32-8) What is the highest level of school that you have finished? 40018-7 More than high school (YU10224-4) What is your current work situation? 59930-1 Otherwise unemployed but not seeking work (ex. 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 Check all that apply 57096-9 Medicine or any health care (medical, dental, mental health or vision) (RG89679-2) Looking for assistance accessing therapist in community Has lack of transportation kept you from medical appointments, meetings, work or from getting things needed for daily living? 49770-0 No (LA32-8) How often do you see or talk to people that you care about and feel close to? (For example: talking to friends on the phone, visiting friends or family, going to episcopal or club meetings) 51782-0 More than 5 times a week (ZI42474-6) In the past year have you spent more than 2 nights in a row in a custodial, mcfp, mcfp center, or juvenile correctional facility? 02330-2 No (LA32-8) Do you feel physically and emotionally safe where you currently live? 20730-8 Yes (LA33-6) In the past year, have you been afraid of your partner or ex-partner? 52837-7 No (LA32-8) Are you a refugee? I choose not to answer this question What country are you from? I choose not to answer this question PRAPARE Score: 1 Enabling Services Provided? Yes Social History Social Determinants Social Info Question Answer Notes PRAPARE Date Completed/Updated: 10/09/2024 What is your current housing situation? I have housing Are you worried about losing your housing? No What is the highest level of school that you have finished? More than high school What is your current work situation? Otherwise unemployed but not seeking work (ex. 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 Check all that apply Medicine or any health care (medical, dental, mental health or vision) Looking for assistance accessing therapist in community Has lack of transportation k ept you from medical appointments, meetings, work or from getting things needed for daily living? No How often do you see or talk to people that you care about and feel close to? (For example: talking to friends on the phone, visiting friends or family, going to episcopal or club meetings) More than 5 times a week In the past year have you sp ent more than 2 nights in a row in a custodial, mcfp, mcfp center, or juvenile correctional facility? No Are you a refugee? I choose not to answ er this question What country are you from? I choose not to answer this question Do you feel physically and emotionally safe where you currently live? Yes In the past year, have you b een afraid of your partner or ex-partner? No PRAPARE Score: 1 Enabling Services Provided? Yes Please specify Case Management Assessment First Visit Miscellaneous Social Info Question Answer Notes Method of learning: Preferred method of learning: Discussion,Demonstration Primary Social History Social Info Question Answer Notes Living Arrangement Living Arrangement: Independent Britni ing Tobacco Use - do not use Tobacco Use: Status Reviewed with Patient Tobacco Use Status Reviewed on: 09/19/2024 Single Question Alcohol Screening How many times in the past year have you had (4 for women, or 5 for men) or more drinks in a day? 20 recently DC'd from [facility], working on [employer] Employment Status Employment Status: Employed Full [employer] Illicit Substance Usage Illicit Substanc e Usage: No Alcohol Use Alcohol Use Frequency: Weekly or Daily dr zeke hutton last drink 2 weeks ago Tobacco Use: Social Info Question Answer Notes Tobacco Control (Standard) Tobacco use: Current smoker When did you start smoking? 06/14/2020 How often do you smoke cigarettes? Every day How many cigarettes a day do you smoke? 5 or less How soon after you wake up do you smoke your first cigarette? 6-30 minutes Are you interested in quitting? Not ready to quit Additional Findings: Tobacco user e-cigarette Problems Problem Type SNOMED Code ICD Code Dates Problem Status W/U Status Risk Notes Problem Tobacco user (469810863) Nicotine dependence, unspecified, uncomplicated (F17.200) Added On:2023 Active confirmed Problem Insomnia (143865571) Insomnia due to medical condition (G47.01) Added On:2024 Active confirmed Problem Mood disorder (03685032) Mood disorder (F39) Added On:2024 Active confirmed Problem Generalized anxiety disorder (36685254) KATHERIN (generalized anxiety disorder) (F41.1) Added On:2023 Active confirmed Problem Iron deficiency anemia (68895681) Iron deficiency anemia (D50.9) Added On:2024 Active confirmed Problem Overweight (381085908) Over weight (E66.3) Added On:2024 Active confirmed Problem Alcohol use disorder (4241968301) Alcohol use disorder (F10.99) Added On:2023 Active confirmed Problem Fatty liver (202114315) Fatty liver (K76.0) Added On:2024 Active confirmed Problem Excessive and frequent menstruation (857014412) Menorrhagia with regular cycle (N92.0) Added On:2024 Active confirmed Problem Premenstrual tension syndrome (07793204) PMS (premenstrual syndrome) (N94.3) Added On:2024 Active confirmed Problem Alcohol withdrawal syndrome (337218884) Alcohol withdrawal, uncomplicated (F10.230) Added On:2024 Active confirmed Problem Irritable bowel syndrome (13044804) Irritable bowel syndrome with both constipation and diarrhea (K58.2) Added On:2024 Active confirmed Problem Menstrual cramps (067184902) Menstrual cramps (N94.6) Added On:2024 Active confirmed Problem Moderate major depression, single episode (56788279) MDD (major depressive disorder), single episode, moderate (F32.1) Added On:2023 Active confirmed Vital Signs Vital Sign Value Notes Appt Date Heart Rate 75 /min 04/30/2025 Temperature 98.0 degrees Fahrenheit 03/15 Respiratory Rate 18 /min 04/30/2025 Blood pressure diastolic 80 mm Hg Oximetry 99 % 04/30/2025 Height 66 in 04/30/2025 Blood pressure systolic 122 mm Hg 04/14 Weight 159.4 lbs 04/30/2025 BMI 25.73 kg/m2 04/30/2025 Encounters Date Time Type Facility Location Provider Diagnosis 025 10:20 AM Office Visit [address] [place] [address] Fransico Ojeda Iron deficiency anemia D50.9 ; Abdominal pain R10.9 ; Fatty liver K76.0 ; Diarrhea R19.7 ; Fatigue R53.83 and Exposure to potential infection Z20.9 025 10:00 AM Office Visit [address] [place] [address] Julia Umanzor Nicotine dependence, unspecified, uncomplicated F17.200 ; MDD (major depressive disorder), single episode, moderate F32.1 ; KATHERIN (generalized anxiety disorder) F41.1 and Alcohol use disorder F10.99 025 03:00 PM Office Visit, Est Pt., Level 4 (17117) [facility] [place] [address] Janet Meyers Nicotine dependence, unspecified, uncomplicated F17.200 ; MDD (major depressive disorder), single episode, moderate F32.1 ; KATHERIN (generalized anxiety disorder) F41.1 and Alcohol use disorder F10.99 025 08:00 AM Office Visit, Est Pt., Level 4 (16691) [address] [address] Janet Sparrajeev Nicotine dependence, unspecified, uncomplicated F17.200 ; MDD (major depressive disorder), single episode, moderate F32.1 ; KATHERIN (generalized anxiety disorder) F41.1 and Alcohol use disorder F10.99 025 10:20 AM Office Visit [address] [place] [address] Licha Mendoza Alcohol use disorder F10.99 and MDD (major depressive disorder), single episode, moderate F32.1 025 09:00 AM Office Visit, New Pt., Level 3 (50611) [facility] [place] [address] Janet Meyers Alcohol withdrawal, uncomplicated F10.230 ; KATHERIN (generalized anxiety disorder) F41.1 ; MDD (major depressive disorder), single episode, moderate F32.1 and Encounter for annual physical exam Z00.00 025 09:20 AM Office Visit [facility] [address] [place] [address] Julia Umanzor Alcohol use disorder F10.99 ; MDD (major depressive disorder), single episode, moderate F32.1 and KATHERIN (generalized anxiety disorder) F41.1 025 11:30 AM Office Visit, Est Pt., Level 4 (11666) [facility] [address] [place] [address] Janet Meyers Nicotine dependence, unspecified, uncomplicated F17.200 ; MDD (major depressive disorder), single episode, moderate F32.1 ; KATHERIN (generalized anxiety disorder) F41.1 and Alcohol use disorder F10.99 025 09:20 AM Office Visit, Est Pt., Level 4 (40400) [address] [place] [address] Fransico Ojeda Abdominal pain R10.9 ; Diarrhea R19.7 ; Fatigue R53.83 ; Menorrhagia with regular cycle N92.0 ; Menstrual cramps N94.6 ; PMS (premenstrual syndrome) N94.3 ; Exposure to potential infection Z20.9 ; Alcohol use disorder F10.99 ; Fatty liver K76.0 and Iron deficiency anemia D50.9 025 09:30 AM Office Visit, Est Pt., Level 4 (96483) [place] [address] [place] [address] Janet Meyers Nicotine dependence, unspecified, uncomplicated F17.200 ; MDD (major depressive disorder), single episode, moderate F32.1 ; KATHERIN (generalized anxiety disorder) F41.1 ; Alcohol use disorder F10.99 and Insomnia due to medical condition G47.01 025 09:00 AM Office Visit, Est Pt., Level 3 ([id number]) [facility] [place] [address] Fransico Ojeda Over weight E66.3 and Irritable bowel syndrome with both constipation and diarrhea K58.2 025 09:30 AM Office Visit, Est Pt., Level 4 ([id number]) [place] [address] [place] [address] Janet Meyers Nicotine dependence, unspecified, uncomplicated F17.200 ; KATHERIN (generalized anxiety disorder) F41.1 ; MDD (major depressive disorder), single episode, moderate F32.1 ; Alcohol use disorder F10.99 and Insomnia due to medical condition G47.01 025 09:30 AM Office Visit, Est Pt., Level 4 ([id number]) [facility] [address] [place] [address] Janet Meyers MDD (major depressive disorder), single episode, moderate F32.1 ; Mood disorder F39 ; Nicotine dependence, unspecified, uncomplicated F17.200 ; KATHERIN (generalized anxiety disorder) F41.1 ; Alcohol use disorder F10.99 and Insomnia due to medical condition G47.01 025 08:40 AM Office Visit, Est Pt., Level 3 ([id number]) [facility] [address] [place] [address] Fransico Ojeda Over weight E66.3 and Abdominal pain R10.9 025 09:30 AM Telehealth Office Visit, Est Pt., Level 4 ([id number]) [facility] [address] [place] [address] Janet Meyers Mood disorder F39 ; MDD (major depressive disorder), single episode, moderate F32.1 ; Nicotine dependence, unspecified, uncomplicated F17.200 ; KATHERIN (generalized anxiety disorder) F41.1 ; Alcohol use disorder F10.99 and Insomnia due to medical condition G47.01 025 03:53 PM Telephone Encounter [facility] [address] [place] [address] Janet Sparr 025 08:08 AM Telephone Encounter [address] [place] [address] Janet Sparr 025 08:23 AM Telephone Encounter [place] [address] [address] Janet Meyers MDD (major depressive disorder), single episode, moderate F32.1 ; KATHERIN (generalized anxiety disorder) F41.1 and Alcohol use disorder F10.99 025 09:26 AM Telephone Encounter [facility] [place] [address] Janet Meyers 025 12:44 PM Telephone Encounter [address] [address] Janet Sparr 025 02:20 PM Telephone Encounter [address] [address] Janet Sparr 025 12:05 PM Telephone Encounter [address] [address] Janet Sparr MDD (major depressive disorder), single episode, moderate F32.1 ; KATHERIN (generalized anxiety disorder) F41.1 and Alcohol use disorder F10.99 025 12:39 PM Telephone Encounter [address] [address] Janet Sparr 025 08:40 AM Telephone Encounter [address] [address] Janet Engr MDD (major depressive disorder), single episode, moderate F32.1 ; KATHERIN (generalized anxiety disorder) F41.1 and Alcohol use disorder F10.99 025 04:33 PM Telephone Encounter [address] [address] Janet Engr 025 02:19 PM Telephone Encounter [facility] [address] [place] [address] Fransico Ojeda 025 11:05 AM Telephone Encounter [address] [address] Janet Sparr 025 08:11 AM Telephone Encounter [address] [address] Fransico Ojeda Assessments Encounter Date Diagnosis (ICD Code) Assessment Notes Treatment Notes Section Notes 01/17/2025 Abdominal pain (ICD-10 - R10.9) 01/17/2025 Diarrhea (ICD-10 - R19.7) 11/22/2024 MDD (major depressive disorder), single episode, moderate (ICD-10 - F32.1) 12/04/2024 MDD (major depressive disorder), single episode, moderate (ICD-10 - F32.1) 01/17/2025 Iron deficiency anemia (ICD-10 - D50.9) 01/22/2025 Nicotine dependence, unspecified, uncomplicated (ICD-10 - F17.200) smoking cessation education provided 02/19/2025 Over weight (ICD-10 - E66.3) 02/19/2025 Irritable bowel syndrome with both constipation and diarrhea (ICD-10 - K58.2) 02/26/2025 Nicotine dependence, unspecified, uncomplicated (ICD-10 - F17.200) smoking cessation education provided 06/23/2024 Nicotine dependence, unspecified, uncomplicated (ICD-10 - F17.200) 08/02/2024 MDD (major depressive disorder), single episode, moderate (ICD-10 - F32.1) 08/14/2024 Nicotine dependence, unspecified, uncomplicated (ICD-10 - F17.200) smoking cessation education provided 09/19/2024 Nicotine dependence, unspecified, uncomplicated (ICD-10 - F17.200) smoking cessation education provided 09/27/2024 Alcohol use disorder (ICD-10 - F10.99) 10/09/2024 KATHERIN (generalized anxiety disorder) (ICD-10 - F41.1) - continues to take medication 10/09/2024 Alcohol withdrawal, uncomplicated (ICD-10 - F10.230) SUPR Programs: Based on an evaluation of [facility] Patient Placement Criteria, a recommendation for placement in Level III treatment is indicated and approved. Confirmation of diagnosis is documented in the initial treatment plan. Admit to the residential unit for alcohol detox and initiate alcohol detox protocols (Librium/Chlordiazepoxi de protocols) and standing orders. Medications may be self-administered by patients under the supervision of approved staff or administered by nursing staff. ALCOHOL DEPENDENT PATIENT Patient presenting Intoxicated (alcohol) Vital signs every shift until they enter withdrawal protocol (CIWA-Ar >1). Assistance with ambulation as needed. If unable to hydrate orally and vomiting is not controlled by Zofran (ondansetron 8 mg), consider ED transport for IV fluids. PATIENT PRESENTING IN ALCOHOL [facility] BASED ON CIWA-Ar Carbamazepine 200mg by mouth BID for 5 days. CIWA-Ar Score 1-5: Initiate Librium (chlordiazepoxide) loading doses as written below. Patients 64 and younger: Librium 50mg orally every 4 hours x 3 doses. Patients 65 and older: Librium 50mg single dose, followed by Librium 25mg orally every 4 hours x 2 doses. CIWA-Ar Score 6-18: Initiate above loading doses. When loading doses are complete, initiate the orders below based on CIWA-Ar score (do CIWA-Ar prior to each dose): CIWA-Ar score of 6-8: Librium 25mg orally. Recheck vital signs and CIWA-Ar in 4 hours. CIWA-Ar score of 9-10: Librium 25mg orally. Recheck vital signs and CIWA-Ar in 2 hours. CIWA-Ar score of 11-14: Librium 50mg orally. Recheck vital signs and CIWA-Ar in 2 hours. CIWA-Ar Score of 15-18: Librium 75mg orally. Recheck vital signs and CIWA-Ar in 1 hour. CIWA-Ar Score greater than 18: ED transfer. Hold above Librium for excessive sedation or respiratory rate less than 12 per minute. Vital signs with every CIWA-Ar and before dosing with Librium (chlordiazepoxide). Discontinue protocol if CIWA is less than 6 (without Librium) for 48 hours. The patient may be moved to a residential program or be discharged to a safe environment. Seizure precautions: If CIWA-Ar score is less than 6, and it has been 6 hours or more since last Librium, and the patient has a seizure: Call 911 immediately Keep patient safe from injury due to surrounding equipment/furniture. Place the patient on his/her side if possible. Call ED with report after ambulance leaves. Notify physician/ACTION FINISHER of transfer after the patient leaves the unit. The following PRN medications may be self-administered by patients under the supervision of approved staff or administered by nursing staff: Ibuprofen 200mg, 2-4 tablets by mouth (with food) every 6 hours as needed for pain (unless on lithium). (NOTE: Ibuprofen and acetaminophen may be given together, but alternating is recommended for continuous pain relief. Guaifenesin 400 mg, 1 tablet by mouth every four hours as needed for cough and chest congestion (take with large glass of water). Loratadine 10 mg, 1 tablet by mouth daily as needed for allergies, watery itchy eyes, or sinus drainage. Throat Lozenges, up to 4 tablets by mouth every three to four hours as needed for sore throat. Antacid tablets, 1-2 tablets by mouth every one to two hours as needed for indigestion or heart burn. If the client prefers liquid, could use: Liquid Antacid, 1 ounce by mouth up to four times daily as needed for indigestion or heartburn Zofran ODT disintegrating (under the tongue) 4 mg, 1-2 tablets every 8 hours as needed for nausea/vomiting. Milk of Magnesia (MOM): 1 ounce (30 milliliters) by mouth every day as needed for constipation. OR Miralax: Stir and fully dissolve 17 grams (1 packet or 1 capful to measured line) in any 4 to 8 ounces of beverage then drink once daily for constipation. Do not use for more than 7 days. OR Docusate 100 mg, 1 capsule twice daily as needed for constipation Hydrocortisone 1% Cream, apply topically (to the skin) to the affected area up to three times daily as needed for itching or inflammation (avoid eyes and genitals). 2% Antifungal Cream, apply topically (to the skin) as directed as needed to affected areas for athlete's foot or jock itch. Triple Antibiotic Ointment, apply topically (to the skin) up to three times daily as needed for minor cuts and scrapes. Carmex or Chapstick, apply topically (to the skin) as needed for chapped lips and skin. Orajel, apply to affected areas as needed for mouth or tooth pain. Hemorrhoid medications, apply to affected area according to directions as needed for hemorrhoid discomfort and itch. Nix (Permethrin 1%) cream 2 ounces, apply topically (to the skin) as directed as needed for head lice. Sunscreen 30 SPF, Apply to exposed skin prior to exposure to sun. The following PRN medications must be approved by nursing staff before self-administration by patients: Diphenhydramine 25 mg, 2 tablets by mouth every 4 hours as needed for allergic reaction or itchy rash. Caution: Do not use hydroxyzine within 4 hours of diphenhydramine and vice versa. Loperamide 2 mg capsules, may give two capsules by mouth for the initial dose, followed by one capsule up to 3 times a day as needed for diarrhea. Acetaminophen 500 mg, 1 - 2 tablets by mouth every six hours as needed for pain. (NOTE: Ibuprofen and acetaminophen may be given together, but alternating is recommended for continuous pain relief). DO NOT use within 24 hours of alcohol use. Oxygen-May administer oxygen 2L/min via nasal cannula if O2 saturation is less than 92%, AND client complains of shortness of breath. Target O2 saturation is 94-98%. Caution: Remember too much oxygen can be detrimental to a client with COPD. Oxygen is a drug and should be delivered by trained staff only. Nurses may remove superficial splinters and sutures from skin lacerations. May apply gauze or bandages to any weeping wounds. Contact nursing if there is pus, a foul odor, increased pain/redness/swelling, or if soaking through bandages. 10/09/2024 Alcohol use disorder (ICD-10 - F10.99) 10/16/2024 Nicotine dependence, unspecified, uncomplicated (ICD-10 - F17.200) smoking cessation education provided 04/02/2025 MDD (major depressive disorder), single episode, moderate (ICD-10 - F32.1) - admits mood swings,bursts of energy, followed by depressive mood, started on Lamotrigine and Seroquel 04/30/2025 Abdominal pain (ICD-10 - R10.9) 04/30/2025 Over weight (ICD-10 - E66.3) 04/02/2025 Mood disorder (ICD-10 - F39) Reasons, potential benefits, interactions and side effects of all medications were discussed. The Patient/Guardian asked appropriate questions, appeared to understand the answers, and decided to accept the treatment and continue being followed. Alternatives and expected course without treatment were reviewed. The Patient/Guardian is aware of the need to contact the office or return for an earlier appointment if any problems or concerns arise. May also contact the 24-hour crisis hotline (R), refer to the closest emergency room or call 911 if new symptoms arise or existing symptoms worsen. The Patient/Guardian is aware that this would apply to symptoms like: suicidal ideation, homicidal ideation, high risk behaviors, manic symptoms, psychotic symptoms, physical symptoms, or any other symptoms that may be dangerous to self or others. Greater than 50% of time spent on coordination and counseling where psychopharmacology as well as psychotherapeutic interventions were discussed along with review of treatments in the past. Education provided concerning need for adequate hydration. Patient/Guardian verbalized understanding of education, treatment plan and follow up. Appointment performed in person in clinic Follow up in 3-4 weeks or sooner as needed. May self-administer or be administered own oral medication per [place] Protocols. Provided informed consent with understanding of side effects, risks and benefits as well as alternative treatments as previously discussed and with the above recommended medications ang other aspects of the treatment program. Agrees to return sooner if symptoms worsen or suicidal or homicidal ideations occur. support and education provided concerning illness and treatment plan, risks and benefits, pt verbalized understanding of the same and agreeable -hospitalized x4 days at beginning of Mar. DC'd 03/23/25 for drinking rubbing ETOH, lied about drinking ETOH initially, then admitted to and hospital staff. Seen by psychiatry, dx with bipolar disorder. SI while hospitalized. Admits mood swings, bursts of energy then depressed mood for awhile. Reports continued mood swings, moderate depression, severe anxiety. Denies racing thoughts. Ok energy and motivation. Has been working on keeping regular schedule/routine. Decreased focus. Moderate depression, moderate to severe anxiety. Denies panic attacks. Ok sleep, waking up early. Denies SI/HI, AH/VH. Education and support provided, Lexapro re-started while hospitalized, feels Prozac was somewhat more effective. __ DC Escitalopram - re-start and continue Fluoxetine for depression, anxiety, evaluate at follow up - continue Quetiapine for mood swings, depression, anxiety, irritability, evaluate at follow up - continue and titrate Lamotrigine for mood swings, depression, anxiety, evaluate at follow up - consideration for mood disorder related to AUD Differential Dx__MDD vs Bipolar 2 disorder vs KATHERIN vs PTSD 05/09/2025 Mood disorder (ICD-10 - F39) Reasons, potential benefits, interactions and side effects of all medications were discussed. The Patient/Guardian asked appropriate questions, appeared to understand the answers, and decided to accept the treatment and continue being followed. Alternatives and expected course without treatment were reviewed. The Patient/Guardian is aware of the need to contact the office or return for an earlier appointment if any problems or concerns arise. May also contact the 24-hour crisis hotline (R), refer to the closest emergency room or call 911 if new symptoms arise or existing symptoms worsen. The Patient/Guardian is aware that this would apply to symptoms like: suicidal ideation, homicidal ideation, high risk behaviors, manic symptoms, psychotic symptoms, physical symptoms, or any other symptoms that may be dangerous to self or others. Greater than 50% of time spent on coordination and counseling where psychopharmacology as well as psychotherapeutic interventions were discussed along with review of treatments in the past. Education provided concerning need for adequate hydration. Patient/Guardian verbalized understanding of education, treatment plan and follow up. Appointment performed via telephone appt with pt consent. Follow up in 3-4 weeks or sooner as needed. May self-administer or be administered own oral medication per [place] Protocols. Provided informed consent with understanding of side effects, risks and benefits as well as alternative treatments as previously discussed and with the above recommended medications ang other aspects of the treatment program. Agrees to return sooner if symptoms worsen or suicidal or homicidal ideations occur. support and education provided concerning illness and treatment plan, risks and benefits, pt verbalized understanding of the same and agreeable -Had manic episode, had missed 3-4 days of meds, had 5 drinks, tried to grab steering wheel [place], Was in custodial x4 days following the incident. Re-started meds when she got back home. Admits mood swings, bursts of energy then depressed mood for awhile. moderate depression, moderate anxiety. Racing thoughts. Ok energy and motivation. Has been working on keeping regular schedule/routine. Ok focus, able to keep up with classwork. Denies panic attacks. Ok sleep, Denies SI/HI, AH/VH. Education and support provided, take Quetiapine every night, may take AM Quetiapine dose in the evening, Trazodone PRN. - continue Fluoxetine for depression, anxiety, evaluate at follow up - continue Quetiapine for mood swings, depression, anxiety, irritability, evaluate at follow up - titrate Lamotrigine for mood swings, depression, anxiety, evaluate at follow up - consideration for mood disorder related to AUD Differential Dx__MDD vs Bipolar 2 disorder vs KATHERIN vs PTSD 05/09/2025 MDD (major depressive disorder), single episode, moderate (ICD-10 - F32.1) - admits mood swings,bursts of energy, followed by depressive mood, continue Lamotrigine and Seroquel 10/16/2024 MDD (major depressive disorder), single episode, moderate (ICD-10 - F32.1) Reasons, potential benefits, interactions and side effects of all medications were discussed. The Patient/Guardian asked appropriate questions, appeared to understand the answers, and decided to accept the treatment and continue being followed. Alternatives and expected course without treatment were reviewed. The Patient/Guardian is aware of the need to contact the office or return for an earlier appointment if any problems or concerns arise. May also contact the 24-hour crisis hotline (R), refer to the closest emergency room or call 911 if new symptoms arise or existing symptoms worsen. The Patient/Guardian is aware that this would apply to symptoms like: suicidal ideation, homicidal ideation, high risk behaviors, manic symptoms, psychotic symptoms, physical symptoms, or any other symptoms that may be dangerous to self or others. Greater than 50% of time spent on coordination and counseling where psychopharmacology as well as psychotherapeutic interventions were discussed along with review of treatments in the past. Education provided concerning need for adequate hydration. Patient/Guardian verbalized understanding of education, treatment plan and follow up. Appointment performed in person in clinic Follow up in 3-4 weeks or sooner as needed. May self-administer or be administered own oral medication per [place] [facility]ocols. Provided informed consent with understanding of side effects, risks and benefits as well as alternative treatments as previously discussed and with the above recommended medications ang other aspects of the treatment program. Agrees to return sooner if symptoms worsen or suicidal or homicidal ideations occur. support and education provided concerning illness and treatment plan, risks and benefits, pt verbalized understanding of the same and agreeable _feeling better, DC'd from [facility] 3 days ago. Feeling better after going through withdrawal. Moderate depression, mild to moderate anxiety. Faith at times. Occacional racing thoughts and irritable. Feels medicine has been effective. Denies SI/HI, AH/VH. Feels meds have been effective __continue Escitalopram for depression, anxiety, evaluate at follow up Differential Dx__MDD vs Bipolar 2 disorder vs KATHERIN vs PTSD 11/22/2024 KATHERIN (generalized anxiety disorder) (ICD-10 - F41.1) 10/09/2024 MDD (major depressive disorder), single episode, moderate (ICD-10 - F32.1) 10/09/2024 MDD (major depressive disorder), single episode, moderate (ICD-10 - F32.1) - -continues to take medication 09/27/2024 MDD (major depressive disorder), single episode, moderate (ICD-10 - F32.1) 08/14/2024 MDD (major depressive disorder), single episode, moderate (ICD-10 - F32.1) Reasons, potential benefits, interactions and side effects of all medications were discussed. The Patient/Guardian asked appropriate questions, appeared to understand the answers, and decided to accept the treatment and continue being followed. Alternatives and expected course without treatment were reviewed. The Patient/Guardian is aware of the need to contact the office or return for an earlier appointment if any problems or concerns arise. May also contact the 24-hour crisis hotline (R), refer to the closest emergency room or call 911 if new symptoms arise or existing symptoms worsen. The Patient/Guardian is aware that this would apply to symptoms like: suicidal ideation, homicidal ideation, high risk behaviors, manic symptoms, psychotic symptoms, physical symptoms, or any other symptoms that may be dangerous to self or others. Greater than 50% of time spent on coordination and counseling where psychopharmacology as well as psychotherapeutic interventions were discussed along with review of treatments in the past. Education provided concerning need for adequate hydration. Patient/Guardian verbalized understanding of education, treatment plan and follow up. Appointment performed in person in clinic Follow up in 3-4 weeks or sooner as needed. May self-administer or be administered own oral medication per [place] Protocols. Provided informed consent with understanding of side effects, risks and benefits as well as alternative treatments as previously discussed and with the above recommended medications ang other aspects of the treatment program. Agrees to return sooner if symptoms worsen or suicidal or homicidal ideations occur. support and education provided concerning illness and treatment plan, risks and benefits, pt verbalized understanding of the same and agreeable _presents in clinic, moderate anxiety and depression. Was arrested for DUI approx 1 MO ago, had several drinks, sitting in the parking lot of a gas station and police pulled up beside her vehicle. Told police she had SI and they took her to [facility]. Had a mis-step about 1.5 weeks before and after that incident. Not sleeping well, waking up every 2 hours. Decreased mood swings, racing thoughts at night. Reports flashbacks and nightmares. Feels Escitalopram has been effective. Prefers to continue with Escitalopram. __continue Escitalopram for depression, anxiety, evaluate at follow up Differential Dx__MDD vs Bipolar 2 disorder vs KATHERIN vs PTSD 06/23/2024 MDD (major depressive disorder), single episode, moderate (ICD-10 - F32.1) 08/02/2024 KATHERIN (generalized anxiety disorder) (ICD-10 - F41.1) 02/26/2025 KATHERIN (generalized anxiety disorder) (ICD-10 - F41.1) - moderate to severe anxiety comes and goes. Taking Hydroxy 2-3x dly. Gabapentin and Hydroxy have been effective __continue Hydroxyzine for anxiety, poor sleep, evaluate at follow up__ __continue Clonidine for anxiety, flashbacks, evaluate at follow up - continue Gabapentin for anxiety, evaluate at follow up 04/02/2025 Nicotine dependence, unspecified, uncomplicated (ICD-10 - F17.200) smoking cessation education provided 01/22/2025 KATHERIN (generalized anxiety disorder) (ICD-10 - F41.1) - moderate anxiety comes and goes, feels anxiety is more manageable. Taking Hydroxy 2-3x dly. Gabapentin and Hydroxy have been effective __continue Hydroxyzine for anxiety, poor sleep, evaluate at follow up__ __continue Clonidine for anxiety, flashbacks, evaluate at follow up - continue Gabapentin for anxiety, evaluate at follow up 01/22/2025 MDD (major depressive disorder), single episode, moderate (ICD-10 - F32.1) Reasons, potential benefits, interactions and side effects of all medications were discussed. The Patient/Guardian asked appropriate questions, appeared to understand the answers, and decided to accept the treatment and continue being followed. Alternatives and expected course without treatment were reviewed. The Patient/Guardian is aware of the need to contact the office or return for an earlier appointment if any problems or concerns arise. May also contact the 24-hour crisis hotline (R), refer to the closest emergency room or call 911 if new symptoms arise or existing symptoms worsen. The Patient/Guardian is aware that this would apply to symptoms like: suicidal ideation, homicidal ideation, high risk behaviors, manic symptoms, psychotic symptoms, physical symptoms, or any other symptoms that may be dangerous to self or others. Greater than 50% of time spent on coordination and counseling where psychopharmacology as well as psychotherapeutic interventions were discussed along with review of treatments in the past. Education provided concerning need for adequate hydration. Patient/Guardian verbalized understanding of education, treatment plan and follow up. Appointment performed in person in clinic Follow up in 4-6 weeks or sooner as needed. May self-administer or be administered own oral medication per [facility]. Provided informed consent with understanding of side effects, risks and benefits as well as alternative treatments as previously discussed and with the above recommended medications ang other aspects of the treatment program. Agrees to return sooner if symptoms worsen or suicidal or homicidal ideations occur. support and education provided concerning illness and treatment plan, risks and benefits, pt verbalized understanding of the same and agreeable - just DC'd from [facility] a couple weeks ago, meds were adjusted, feels pretty good. in October. Has 51 days sober. More faith and irritable around her period. Feels mood is more stable. Moderate depression and anxiety. Denies panic attacks. Ok energy and motivation. Registering for college classes for next week. Denies SI/HI, AH/VH. Feels meds have been effective, prefers to continue with same meds for now. __continue Escitalopram for depression, anxiety, evaluate at follow up - continue Quetiapine for mood swings, depression, anxiety, irritability, evaluate at follow up Differential Dx__MDD vs Bipolar 2 disorder vs KATHERIN vs PTSD 01/17/2025 Abdominal pain (ICD-10 - R10.9) 09/19/2024 MDD (major depressive disorder), single episode, moderate (ICD-10 - F32.1) Reasons, potential benefits, interactions and side effects of all medications were discussed. The Patient/Guardian asked appropriate questions, appeared to understand the answers, and decided to accept the treatment and continue being followed. Alternatives and expected course without treatment were reviewed. The Patient/Guardian is aware of the need to contact the office or return for an earlier appointment if any problems or concerns arise. May also contact the 24-hour crisis hotline ([facility]), refer to the closest emergency room or call 911 if new symptoms arise or existing symptoms worsen. The Patient/Guardian is aware that this would apply to symptoms like: suicidal ideation, homicidal ideation, high risk behaviors, manic symptoms, psychotic symptoms, physical symptoms, or any other symptoms that may be dangerous to self or others. Greater than 50% of time spent on coordination and counseling where psychopharmacology as well as psychotherapeutic interventions were discussed along with review of treatments in the past. Education provided concerning need for adequate hydration. Patient/Guardian verbalized understanding of education, treatment plan and follow up. Appointment performed in person in clinic Follow up in 3-4 weeks or sooner as needed. May self-administer or be administered own oral medication per [facility]. Provided informed consent with understanding of side effects, risks and benefits as well as alternative treatments as previously discussed and with the above recommended medications ang other aspects of the treatment program. Agrees to return sooner if symptoms worsen or suicidal or homicidal ideations occur. support and education provided concerning illness and treatment plan, risks and benefits, pt verbalized understanding of the same and agreeable _feeling rough, can go for so long, about 1.5 weeks without drinking then has to have a drink. Last drink was about 6 days ago, had 6 drinks or so, blacked out, then got really sick, blacked out. Puked out x2 days afterwards. Moderate depression. Severe anxiety. Irritable easily. SI when she's drunk. Denies HI/AH/VH. Ok energy and motivation. Is doing her homework and attending classes. Has 3 more weeks of classes, unsure what she'll do over the summer. Feels Lexapro has been effective and prefers to continue with Lexapro __continue Escitalopram for depression, anxiety, evaluate at follow up Differential Dx__MDD vs Bipolar 2 disorder vs KATHERIN vs PTSD 12/04/2024 KATHERIN (generalized anxiety disorder) (ICD-10 - F41.1) 01/17/2025 Fatigue (ICD-10 - R53.83) 12/04/2024 Alcohol use disorder (ICD-10 - F10.99) 01/17/2025 Menorrhagia with regular cycle (ICD-10 - N92.0) 01/22/2025 Alcohol use disorder (ICD-10 - F10.99) - DC'd from [facility] several weeks ago, med were adjusted, 51 days sober, Has been attending [facility] programming and talking with a sponser. Has also been attending Zoom AA meetings, would like referral for therapist - occasional thoughts of using, and feeling discouraged about living my life sober, education and support provided, stopped Naltrexone as it wasn't effective - attending [facility] weekly - DC Naltrexone, 01/17/2025 Fatty liver (ICD-10 - K76.0) 08/02/2024 Alcohol use disorder (ICD-10 - F10.99) 06/23/2024 KATHERIN (generalized anxiety disorder) (ICD-10 - F41.1) --anxiety comes and goes, taking Hydroxy at night as needed, feels it's been somewhat effective --continue Hydroxyzine for anxiety, poor sleep, evaluate at follow up--no refill needed 08/14/2024 KATHERIN (generalized anxiety disorder) (ICD-10 - F41.1) --anxiety comes and goes, wakes up feeling anxious, taking Hydroxy 2 tabs most days, doesn't feel it has been effective, poor sleep, racing thoughts at bedtime __titrate Hydroxyzine for anxiety, poor sleep, evaluate at follow up__ --trial Clonidine for anxiety, flashbacks, evaluate at follow up 09/19/2024 KATHERIN (generalized anxiety disorder) (ICD-10 - F41.1) --anxiety comes and goes, wakes up feeling anxious poor sleep, racing thoughts at bedtime __continue Hydroxyzine for anxiety, poor sleep, evaluate at follow up__ __titrate Clonidine for anxiety, flashbacks, evaluate at follow up --trial Quetiapine for anxiety, evaluate at follow up 10/09/2024 Encounter for annual physical exam (ICD-10 - Z00.00) Continue treatment as recommended by [facility] staff. Encouraged patient to obtain routine medical care with patient's own primary care provider or establish as a patient at [facility] if no current primary care provider. 10/09/2024 KATHERIN (generalized anxiety disorder) (ICD-10 - F41.1) 11/22/2024 Alcohol use disorder (ICD-10 - F10.99) 10/16/2024 KATHERIN (generalized anxiety disorder) (ICD-10 - F41.1) - anxiety comes and goes, feeling less anxious, feels anxiety is more manageable. __continue Hydroxyzine for anxiety, poor sleep, evaluate at follow up__ __continue Clonidine for anxiety, flashbacks, evaluate at follow up - continue Quetiapine for anxiety, evaluate at follow up 02/26/2025 MDD (major depressive disorder), single episode, moderate (ICD-10 - F32.1) Reasons, potential benefits, interactions and side effects of all medications were discussed. The Patient/Guardian asked appropriate questions, appeared to understand the answers, and decided to accept the treatment and continue being followed. Alternatives and expected course without treatment were reviewed. The Patient/Guardian is aware of the need to contact the office or return for an earlier appointment if any problems or concerns arise. May also contact the 24-hour crisis hotline (R), refer to the closest emergency room or call 911 if new symptoms arise or existing symptoms worsen. The Patient/Guardian is aware that this would apply to symptoms like: suicidal ideation, homicidal ideation, high risk behaviors, manic symptoms, psychotic symptoms, physical symptoms, or any other symptoms that may be dangerous to self or others. Greater than 50% of time spent on coordination and counseling where psychopharmacology as well as psychotherapeutic interventions were discussed along with review of treatments in the past. Education provided concerning need for adequate hydration. Patient/Guardian verbalized understanding of education, treatment plan and follow up. Appointment performed in person in clinic Follow up in 3-4 weeks or sooner as needed. May self-administer or be administered own oral medication per [facility] Protocols. Provided informed consent with understanding of side effects, risks and benefits as well as alternative treatments as previously discussed and with the above recommended medications ang other aspects of the treatment program. Agrees to return sooner if symptoms worsen or suicidal or homicidal ideations occur. support and education provided concerning illness and treatment plan, risks and benefits, pt verbalized understanding of the same and agreeable -Having a rough few days, has had several mis-steps over the last few weeks, bought 7 small shot bottles yesterday when her Mom sent her to buy glue stics. Had 60 days sober. Hasn't started seeing therapist yet or hasn't followed up with coach tour driver for awhile, I get embarressed. Mood swings and racing thoughts. Moderate depression, moderate to severe anxiety. Denies panic attacks. Decreased energy and motivation. Denies SI/HI, AH/VH. Education and support provided, __taper and DC Escitalopram for depression, anxiety, evaluate at follow up - trial Fluoxetine for depression, anxiety, evaluate at follow up - continue Quetiapine for mood swings, depression, anxiety, irritability, evaluate at follow up Differential Dx__MDD vs Bipolar 2 disorder vs KATHERIN vs PTSD 04/02/2025 KATHERIN (generalized anxiety disorder) (ICD-10 - F41.1) - moderate to severe anxiety comes and goes. Taking Hydroxy 2-3x dly. Gabapentin and Hydroxy have been effective __continue Hydroxyzine for anxiety, poor sleep, evaluate at follow up__ __continue Clonidine for anxiety, flashbacks, evaluate at follow up - continue Gabapentin for anxiety, evaluate at follow up 05/09/2025 Nicotine dependence, unspecified, uncomplicated (ICD-10 - F17.200) smoking cessation education provided 04/02/2025 Alcohol use disorder (ICD-10 - F10.99) - - hospitalized x4 days for drinking rubbing alcohol, to knock myself out. has coach tour driver that she communicates with daily, plans on starting with therapy, Support and education provided - upset because pt has been having mis-steps, drinking rubbing ETOH - admits cravings and dreams of using - attending [facility] weekly 05/09/2025 KATHERIN (generalized anxiety disorder) (ICD-10 - F41.1) - moderate anxiety usually feels anxious. Taking Hydroxy 2-3x dly. Gabapentin and Hydroxy have been effective __continue Hydroxyzine for anxiety, poor sleep, evaluate at follow up__ __continue Clonidine for anxiety, flashbacks, evaluate at follow up - continue Gabapentin for anxiety, evaluate at follow up 10/16/2024 Alcohol use disorder (ICD-10 - F10.99) - DC'd from [facility] 3 days ago, feels better since going through detox. Admits occasional cravings, feel Naltrexone has been somewhat helpful , prefers to continue with Naltrexone. Denies ETOH use since DC. - has therapy referral- will call therapist - attending [facility] at times. - court date has been postponed -continue Naltrexone, support system/ coach tour driver, evaluate at follow up 09/19/2024 Alcohol use disorder (ICD-10 - F10.99) --having some cravings, has mis-steps every 1.5-2 weeks, feels Naltrexone has been helpful, but still struggles with using. Consider titrating Naltrexone, need to obtain labs from [facility] to assess liver function --requested therapy referral --attending [facility], has mentor, has a friend who has AUD who she feels is supportive. Education and support provided -continue Naltrexone, support system/ coach tour driver, evaluate at follow up 08/14/2024 Alcohol use disorder (ICD-10 - F10.99) --Was arrested for DUI approx 1 MO ago, had several drinks, sitting in the parking lot of a gas station and police pulled up beside her vehicle. Told police she had SI and they took her to [facility]. Had a mis-step about 1.5 weeks before and after that incident. Denies cravings with Naltrexone. Prefers to continue with Naltrexone --attending [facility], has mentor, offered coach tour driver, pt resistant, has a friend who has AUD who she feels is supportive. Education and support provided -continue Naltrexone, support system/ coach tour driver, evaluate at follow up 06/23/2024 Alcohol use disorder (ICD-10 - F10.99) --admits mis-steps a couple weeks ago, used a little bit, admits cravings every day, has been taking Naltrexone. Attending group, missed last week as she was sick. --recommended coach tour driver, pt will consider and let [employer] know- -continue Naltrexone, support system/ coach tour driver, evaluate at follow up 01/22/2025 Insomnia due to medical condition (ICD-10 - G47.01) - improved sleep with Trazodone and quetiapine, 7-8 hours most nights, prefers to continue with same med regimen - continue Trazodone for insomnia, evaluate at follow up 02/26/2025 Alcohol use disorder (ICD-10 - F10.99) - -has had several mis-steps over the last several weeks, hasn't started counseling or reached out to coach tour driver. Support and education provided - upset because pt has been having mis-steps - attending [facility] weekly 01/17/2025 Menstrual cramps (ICD-10 - N94.6) 01/17/2025 Diarrhea (ICD-10 - R19.7) 01/17/2025 Fatigue (ICD-10 - R53.83) 01/17/2025 PMS (premenstrual syndrome) (ICD-10 - N94.3) 04/02/2025 Insomnia due to medical condition (ICD-10 - G47.01) - improved sleep with Trazodone and quetiapine, 5-6 hours to 7-8 hours, prefers to continue with same med regimen - continue Trazodone for insomnia, evaluate at follow up 02/26/2025 Insomnia due to medical condition (ICD-10 - G47.01) - improved sleep with Trazodone and quetiapine, 5-6 hours to 7-8 hours, prefers to continue with same med regimen - continue Trazodone for insomnia, evaluate at follow up 05/09/2025 Alcohol use disorder (ICD-10 - F10.99) - -had mis-step earlier this month, was in custodial x4 days, Support and education provided - - admits cravings and dreams of using - attending [facility], has coach tour driver 05/09/2025 Insomnia due to medical condition (ICD-10 - G47.01) - improved sleep with Trazodone and quetiapine, 5-6 hours to 7-8 hours, prefers to continue with same med regimen - take Quetiapine every night, Trazodone PRN - continue Trazodone for insomnia, evaluate at follow up 01/17/2025 Exposure to potential infection (ICD-10 - Z20.9) 01/17/2025 Exposure to potential infection (ICD-10 - Z20.9) 01/17/2025 Alcohol use disorder (ICD-10 - F10.99) 01/17/2025 Fatty liver (ICD-10 - K76.0) 01/17/2025 Iron deficiency anemia (ICD-10 - D50.9) 06/23/2024 Other Client is engaged in short term brief intervention therapy. 09/27/2024 Other Clinician spoke with client to assist in working on building skills to help the consumer gain confidence in their independent living skills. The clinician practiced with client implementing problem solving skills to help facilitate exploration of options for therapy services. Determined with client utilizing person centered focus that a referral to therapy at [facility] was appropriate based on client goal of reducing mental health symptoms. The clinician encouraged and engaged in critical thinking of how to use natural resources and coping skills to help manage symptoms in the moment prior to first appointment. 10/09/2024 Other 10/09/2024 Other Clinician met w ith client to assess needs for residential services. Clinician gathered information regarding historical presentation of mental health and substance use symptoms including withdrawal, HIV Risk assessment, psychiatric hospitalization history and presenting concern. Clinician conducted PHQ9 and CSSRS assessments as well as social drivers of health screening for the purposes of identifying additional service needs. 01/22/2025 Other Engaged arely ua in suicide risk assessment. Provided risk based intervention to ensure saftey and linkage to ongoing services Plan Of Treatment No Information Medical (General) History Medical History History ICD Code Bipolar tendencies Depression Alcohlism Surgical History Surgery Date(Month/Year) Ear tubes 2001 [place] teeth extractions 2019 Hospitalization History Reason Date(Month/Year) [facility] 04/07 [facility] 11/2024 Alcohol withdraw, UTI 11/2024 suicidal ideation/DUI 07/20/2024
--- NOTE | 2025-06-13 09:06 | ED.URI ---
HPI - URI/Sore Throat General Chief Complaint: Upper Respiratory Infection Stated Complaint: flu symptoms Time Seen by Provider: 06/13/25 08:58 Source: patient and RN notes reviewed Mode of arrival: ambulatory Limitations: no limitations History of Present Illness HPI Narrative: 25-year-old female patient with history of bipolar disorder and mood disorder presents today complaining of 10-11 day history of headache, body aches and rhinorrhea. She started with nausea, vomiting, and some mild diarrhea 3-4 days ago. She is vomiting frequently error and many times is unable to keep down even water. She has been taking Tylenol for her headache with some mild improvement. She has taken some home influenza and tests which have been negative. Related Data Home Medications ?Medication ?Instructions ?Recorded ?Confirmed ?Last Taken ?Type clonidine HCl 0.1 mg mg PO 06/13/25 Unknown History tablet,extended release,12 hr escitalopram oxalate 10 mg tablet mg 06/13/25 Unknown History fluoxetine 20 mg capsule mg 06/13/25 Unknown History gabapentin 600 mg tablet mg 06/13/25 Unknown History hydroxyzine HCl 50 mg tablet mg 06/13/25 Unknown History lamotrigine 100 mg tablet mg 06/13/25 Unknown History loperamide 2 mg capsule mg 06/13/25 Unknown History quetiapine 100 mg tablet mg 06/13/25 Unknown History trazodone 100 mg tablet mg 06/13/25 Unknown History Allergies Allergy/AdvReac Type Severity Reaction Status Date / Time No Known Allergies Allergy Verified 06/13/25 08:52 [facility] Past Medical History Medical History (Updated 06/13/25 @ 09:36 by Cecelia Carson APRN, FNP) Mood disorder Bipolar disorder Family History Family History Grandparent Family history of obesity Hypertension Family history of cardiac disorder Diabetes mellitus Sibling Family history of eczema Social History Social History Second hand tobacco smoke exposure: No Alcohol intake: never Comments At time of signature, I have reviewed and agree with nursing past medical, surgical, social and family history unless otherwise noted. Please see nursing chart for further information. There is no relevant family history pertinent to the presenting complaint Exam Narrative: GENERAL: Mildly ill-appearing, well-nourished, and in no acute distress. HEAD: Normocephalic, atraumatic. EYES: EOMI. No redness or drainage. Conjunctivae normal. ENT: Mucous membranes pink and moist. Nares clear. No rhinorrhea. TMs normal bilaterally. Throat normal. Uvula midline. NECK: Normal AROM. Supple. No lymphadenopathy. CHEST: No respiratory distress. Clear to auscultation. HEART: Regular rate and rhythm. No murmur appreciated. ABDOMEN: Soft,, nondistended, normal active bowel sounds.+ mild generalized abdominal tenderness about rebound or guarding EXTREMITIES: Normal range of motion. No edema. SKIN: Warm, dry, no rash. Capillary refill normal. Normal skin turgor. NEURO: No focal deficits. Alert and oriented x3. Gait steady. PSYCH: Normal affect. No signs of depression or anxiety. Course Course Level of Care: Express Care Visit Vital Signs Vital signs: Vital Signs Temperature 98 F 06/13/25 08:47 Pulse Rate 92 06/13/25 08:47 Respiratory Rate 16 06/13/25 08:47 Blood Pressure 139/97 H 06/13/25 08:47 Pulse Oximetry 98 06/13/25 08:47 Oxygen Delivery Room Air 06/13/25 08:47 Temperature 98 F 06/13/25 08:47 Pulse Rate 92 06/13/25 08:47 Respiratory Rate 16 06/13/25 08:47 Blood Pressure 139/97 H 06/13/25 08:47 Pulse Oximetry 98 06/13/25 08:47 Oxygen Delivery Room Air 06/13/25 08:47 Reviewed MDM MDM Narrative Medical decision making narrative: 25-year-old female patient with history of bipolar disorder and mood disorder presents today complaining of 10-11 day history of headache, body aches and rhinorrhea. She started with nausea, vomiting, and some mild diarrhea 3-4 days ago. She is vomiting frequently error and many times is unable to keep down even water. She has been taking Tylenol for her headache with some mild improvement. She has taken some home influenza and tests which have been negative. Patient still putting out normal urine. Patient requesting work note today. Upon exam, mild generalized abdominal tenderness without rebound or guarding. Mucous membranes pink and moist. Symptoms likely viral in etiology. Dose of Zofran given. Will prescribe as well. Recommend fluids and to advance diet as tolerated. Patient agrees with plan. VSS. Anticipatory guidance and ED precautions given. Differential Diagnosis Differential Diagnosis: Gastroenteritis, viral syndrome Critical Care Time Critical Care Time Critical Care Time: No Discharge Plan Discharge Clinical Impression: Nausea vomiting and diarrhea Patient Disposition: Home Condition: Stable Instructions: Acute Nausea and Vomiting (DC), Acute Diarrhea (ED) Additional Instructions: Please take the Zofran as prescribed. Rest and stay hydrated with water and electrolyte containing fluids. When you are able to tolerate fluids, then advance your diet as tolerated starting with bland foods. As discussed, if you are unable to tolerate fluids even with Zofran, please go to the ER immediately for further evaluation and treatment. Follow-up with your PCP in 2-3 days if symptoms are not improving. Patient Language: Frisian Prescriptions: New ondansetron 4 mg tablet,disintegrating 4 mg PO Q4-6H PRN (Reason: nausea and vomiting) Qty: 15 0RF No Action gabapentin 600 mg tablet loperamide 2 mg capsule hydroxyzine HCl 50 mg tablet quetiapine 100 mg tablet trazodone 100 mg tablet fluoxetine 20 mg capsule lamotrigine 100 mg tablet escitalopram oxalate 10 mg tablet clonidine HCl 0.1 mg tablet extended release 12 hr PO Follow-up/Referrals: Fransico Ojeda MD [Primary Care Provider, Hospitalist] Stand Alone Forms: Work/School Release IP Time of Disposition: 09:36
[2025-06-13] MEDS: ONDANSETRON HCL ODT 4 MG TABLET 8 MG SUBLINGUAL (09:09)
== END 2025-06-13 09:40 | disposition home or self-care (01) ==
PROVIDERS: Emergency Provider Nurse Practitioner; PCP Internal Medicine
DX: R11.2 Nausea with vomiting, unspecified (principal); R19.7 Diarrhea, unspecified; F31.9 Bipolar disorder, unspecified; F39 Unspecified mood [affective] disorder
CPT/HCPCS: 99213; A9270; G0463